=== PATIENT | female | born 1995 | race American Indian/Alaskan Native ===

== ENCOUNTER 2017-03-02 19:50 | Emergency (ER) | payer OTHER ==
[2017-03-02 20:12] VITALS: BP 131/85
--- NOTE | 2017-03-02 23:07 | Emergency Department Report ---
- General Chief Complaint: Wound/Laceration Stated Complaint: LACERATION RT HAND/ THUMB Time Seen by Provider: 03/02/17 23:02 Source: patient Mode of arrival: Ambulatory Limitations: No Limitations - History of Present Illness -: This evening Location: other (right thumb distal) Extremity Location: Right: Hand (right distal thumb) Place: home Patient Tetanus UTD: Yes (November 2016) Context: accidental, sharp object use (potatoe cutter) Associated Symptoms: pain. denies: loss of feeling/numbness, suspect foreign body present, weakness followed by dizziness, nausea/vomiting, fever Treatments Prior to Arrival: bandage - Related Data Previous Rx's Medication Instructions Recorded Last Taken Type Amoxicillin [Trimox CAP] 500 mg PO Q8H #30 capsule 12/02/14 Unknown Rx HYDROcodone/APAP 10-325 [[place] 1 each PO Q6HR PRN #20 tablet 12/02/14 Unknown Rx 10-325 mg TAB] predniSONE [Deltasone] 20 mg PO TID #9 tab 12/02/14 Unknown Rx Cephalexin [Keflex] 500 mg PO Q12HR #14 cap 03/02/17 Unknown Rx Allergies Allergy/AdvReac Type Severity Reaction Status Date / Time No Known Allergies Allergy Unverified 12/01/14 23:27 ED Review of Systems ROS: Stated complaint: LACERATION RT HAND/ THUMB Other details as noted in HPI Constitutional: denies: chills, fever Eyes: denies: eye pain, eye discharge, vision change ENT: denies: ear pain, throat pain Respiratory: denies: cough, shortness of breath, wheezing Cardiovascular: denies: chest pain, palpitations Endocrine: no symptoms reported Gastrointestinal: denies: abdominal pain, nausea, diarrhea Genitourinary: denies: urgency, dysuria, discharge Musculoskeletal: denies: back pain, joint swelling, arthralgia Skin: denies: rash, lesions Neurological: denies: headache, weakness, paresthesias Psychiatric: denies: anxiety, depression Hematological/Lymphatic: denies: easy bleeding, easy bruising ED Past Medical Hx - Past Medical History Previous Medical History?: No - Surgical History Past Surgical History?: No - Social History Smoking Status: Current Every Day Smoker Substance Use Type: Alcohol - Medications Home Medications: Home Medications Medication Instructions Recorded Confirmed Last Taken Type Amoxicillin [Trimox CAP] 500 mg PO Q8H #30 capsule 12/02/14 Unknown Rx HYDROcodone/APAP 10-325 [[place] 1 each PO Q6HR PRN #20 tablet 12/02/14 Unknown Rx 10-325 mg TAB] predniSONE [Deltasone] 20 mg PO TID #9 tab 12/02/14 Unknown Rx Cephalexin [Keflex] 500 mg PO Q12HR #14 cap 03/02/17 Unknown Rx ED Physical Exam - General Limitations: No Limitations General appearance: alert, in no apparent distress - Head Head exam: Present: atraumatic, normocephalic - Eye Eye exam: Present: normal appearance - ENT ENT exam: Present: normal exam, mucous membranes moist, TM's normal bilaterally - Neck Neck exam: Present: normal inspection - Respiratory Respiratory exam: Present: normal lung sounds bilaterally. Absent: respiratory distress - Cardiovascular Cardiovascular Exam: Present: regular rate, normal rhythm. Absent: systolic murmur, diastolic murmur, rubs, gallop - GI/Abdominal GI/Abdominal exam: Present: normal bowel sounds - Extremities Exam Extremities exam: Present: normal inspection - Expanded Upper Extremity Exam Right General: Present: abrasion, nail injury (#) (right first digit), avulsion Shoulder Exam: Present: normal inspection, full ROM Upper Arm exam: Present: normal inspection, full ROM Hand Wrist exam: Present: full ROM, tenderness, nail avulsion, other (normal sensation intact in right hand and digits) Neuro motor exam: Present: wrist extension intact, thumb opposition intact, thumb adduction intact Vascular: Present: normal capillary refill, radial pulse - Back Exam Back exam: Present: normal inspection, full ROM - Neurological Exam Neurological exam: Present: alert, oriented X3, normal gait - Psychiatric Psychiatric exam: Present: normal affect, normal mood - Skin Skin exam: Present: warm, dry, normal color. Absent: rash ED Course Vital Signs 03/02/17 20:06 Temperature 98.5 F Pulse Rate 75 Respiratory 20 Rate Blood Pressure 131/85 O2 Sat by Pulse 100 Oximetry ED Medical Decision Making - Medical Decision Making 21 year old female presents to ED with right thumb laceration after using potato cutter this evening. Patient will not need procedure/suturing done due to avulsion injury to right thumb. patient has approximately 1cm of skin missing from distal portion of right thumb including nail distal nail bed. bleeding is well controlled. I have applied Surgiseal (regenerating cellulose) and sterile gauze and patient will be given RX for PO antibiotics. patient is to return to ED or urgent care or PCP in 48 hours for recheck of wound. Critical care attestation.: If time is entered above; I have spent that time in minutes in the direct care of this critically ill patient, excluding procedure time. ED Disposition Clinical Impression: Thumb laceration Qualifiers: Encounter type: initial encounter Laterality: right Qualified Code(s): S61.011A - Laceration without foreign body of right thumb without damage to nail , initial encounter Disposition: DISCHARGED TO HOME OR SELFCARE Is pt being admited?: No Does the pt Need Aspirin: No Condition: Stable Instructions: Laceration (ED) Additional Instructions: Please follow up for wound recheck with urgent care or PCP or ED in 48 hours. Prescriptions: Cephalexin [Keflex] 500 mg PO Q12HR #14 cap Referrals: PRIMARY CARE [Primary Care Provider] - 03/04/17 Forms: Work/School Release Form(ED)
== END 2017-03-02 23:29 | disposition home or self-care (01) ==
LOC: ED 19:50
DX: S61.011A Laceration without foreign body of right thumb without damage to nail, initial encounter (principal); F17.200 Nicotine dependence, unspecified, uncomplicated; W45.8XXA Other foreign body or object entering through skin, initial encounter; Y93.9 Activity, unspecified; Y92.9 Unspecified place or not applicable; Y99.9 Unspecified external cause status
CPT/HCPCS: 99282

== ENCOUNTER 2017-10-05 20:49 | Outpatient (CLI) | payer OTHER, MEDICAID ==
[2017-10-05 21:06] VITALS: BP 141/87
== END 2017-10-05 21:56 | disposition home or self-care (01) ==
LOC: TRG 20:49
PROVIDERS: ATTEND Obstetrics & Gynecology
DX: O46.93 Antepartum hemorrhage, unspecified, third trimester (principal); O36.8130 Decreased fetal movements, third trimester, not applicable or unspecified; Z3A.34 34 weeks gestation of pregnancy
CPT/HCPCS: 59025

== ENCOUNTER 2017-10-08 12:21 | Outpatient (CLI) | payer MEDICAID, OTHER ==
[2017-10-08] MEDS ORDERED: LACTATED RINGERS 500 ML IV ONE (12:24)
[2017-10-08 13:29] LABS: Bacteria,Urine 2+ /HPF (Negative); Bilirubin,Urine NEG (Negative); Blood,Urine SM (Negative); Ketones,Urine NEG (Negative); Leukocyte Esterase,Urine SM (Negative); Mucus,Urine FEW /HPF; Nitrite,Urine NEG (Negative); Protein,Urine <15 mg/dL mg/dL (Negative); Urobilinogen,Urine < 2.0 mg/dL (<2.0)
[2017-10-08 13:31] LABS: Hematocrit 32.5 % (30.3-42.9); Hemoglobin 10.6 gm/dl (10.1-14.3); Mean Corpuscular HGB Conc 33 % (30-34); Mean Corpuscular Hemoglobin 27 pg (28-32); Mean Corpuscular Volume 83 fl (79-97); Platelet Count 352 K/mm3 (140-440); Red Cell Distribution Width 15.7 % (13.2-15.2); White Blood Count 13.5 K/mm3 (4.5-11.0)
[2017-10-08 13:47] LABS: Alanine Aminotransferase 8 units/L (7-56); Lactate Dehydrogenase 144 units/L (91-180); Uric Acid 4.4 mg/dL (3.5-7.6)
[2017-10-08 14:00] VITALS: BP 137/73
== END 2017-10-08 14:17 | disposition home or self-care (01) ==
LOC: TRG 12:21
PROVIDERS: ATTEND Obstetrics & Gynecology
DX: O47.03 False labor before 37 completed weeks of gestation, third trimester (principal); Z3A.35 35 weeks gestation of pregnancy
CPT/HCPCS: 36415; 59025; 81001; 82565; 83615; 84450; 84460; 84550; 85027

== ENCOUNTER 2017-10-14 15:28 | Outpatient (CLI) | payer MEDICAID, OTHER ==
[2017-10-14] MEDS ORDERED: LACTATED RINGERS 500 ML IV ONE (16:37)
[2017-10-19 04:28] VITALS: BP 161/66
== END 2017-10-14 16:50 | disposition home or self-care (01) ==
LOC: TRG 15:28
PROVIDERS: ATTEND Obstetrics & Gynecology
DX: O47.03 False labor before 37 completed weeks of gestation, third trimester (principal); Z3A.36 36 weeks gestation of pregnancy
CPT/HCPCS: 59025

== ENCOUNTER 2017-10-18 11:11 | Inpatient (IN) | payer MEDICAID, OTHER ==
[2017-10-18 12:15] LABS: Hematocrit 31.7 % (30.3-42.9); Hemoglobin 10.2 gm/dl (10.1-14.3); Mean Corpuscular HGB Conc 32 % (30-34); Mean Corpuscular Hemoglobin 26 pg (28-32); Mean Corpuscular Volume 82 fl (79-97); Platelet Count 399 K/mm3 (140-440); Red Blood Count 3.87 M/mm3 (3.65-5.03); Red Cell Distribution Width 15.8 % (13.2-15.2)
[2017-10-18 12:18] LABS: Bilirubin,Urine Negative (Negative); Blood,Urine Negative (Negative); Ketones,Urine Negative (Negative); Leukocyte Esterase,Urine Negative (Negative); Nitrite,Urine Negative (Negative); Urobilinogen,Urine < 2.0 mg/dL (<2.0)
[2017-10-18 12:25] LABS: Bacteria,Urine 1+ /HPF (Negative)
[2017-10-18 12:32] LABS: Alanine Aminotransferase 8 units/L (7-56); Blood Urea Nitrogen 8 mg/dL (7-17); Lactate Dehydrogenase 195 units/L (91-180); Uric Acid 6.2 mg/dL (3.5-7.6)
[2017-10-18] MEDS ORDERED: SENOKOT S PO PRN (13:59)
[2017-10-18] MEDS ORDERED: MYLICON PO PRN (13:59)
[2017-10-18] MEDS ORDERED: ALUM-MAG HYDROX-SIMETH 200-200-20MG/5ML PO PRN (13:59)
[2017-10-18] MEDS ORDERED: ZOFRAN IV PRN (13:59)
[2017-10-18] MEDS ORDERED: MILK OF MAGNESIA PO PRN (13:59)
[2017-10-18] MEDS ORDERED: COLACE PO PRN (13:59)
[2017-10-18] MEDS ORDERED: AMBIEN PO PRN (13:59)
[2017-10-18] MEDS ORDERED: TYLENOL PO PRN (13:59)
[2017-10-18] MEDS ORDERED: DEEP SEA NS PRN (13:59)
[2017-10-18] MEDS ORDERED: TUCKS PAD TP PRN (13:59)
--- NOTE | 2017-10-18 14:10 | Event Note ---
Date: 10/18/17 Arrived to office for routine visit. c/o headache for 3 days, not reported to office. Denies blurred vision or epigastric pain. BP in office for 140/80-90. Seen by [facility] for morbid obesity. consult-Mila Green, Plan 24hr urine and [facility] consult.
--- NOTE | 2017-10-18 16:46 | Ultrasound Report ---
FINAL REPORT EXAM: US OB BPP WO NON-STRESS HISTORY: elevated BP TECHNIQUE: Biophysical profile PRIORS: Biophysical profile September 05, 2017. FINDINGS: heart rate: 142 BPM Breathin Gross Body Movements: 2 Tone: 2 Qualitative AFV: 2 IMPRESSION: Biophysical profile score 6/8. Anthony level II finding report initiated.
--- NOTE | 2017-10-18 17:45 | Event Note ---
Date: 10/18/17 Dr. Montoya consulted with [facility], recommendation to delivery BPP 04/07 BP: 134/6/8, 132/70, 140/76, 140/73, 128/57 Labs as noted.
[2017-10-18] MEDS: LACTATED RINGERS 1,000 ML IV SCH (17:55)
--- NOTE | 2017-10-18 19:04 | History and Physical Report ---
History of Present Illness Date of examination: 10/18/17 Date of admission: 10/18/17 16:24 History of present illness: 22 yo LMP EDC 11/10/17 @ 36.5 weeks gestation, presented to office for routine OB visit with elevated BP's of 150/90 and c/o unresolved headache for 3 days. Denies blurred vision or epigastric pain. Transfer into care at 16 weeks from [facility]. care complicated by obesity with [facility] comang't EIF per [facility] with resolution. She is GBS negative. 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 Family/Genetic History: diabetes, hypertension, stroke Social history: no significant social history, single - Obstetrical History Expected Date of Delivery: 11/10/17 Actual Gestation: 36 Week(s) 5 Day(s) : 1 Medications and Allergies Allergies Allergy/AdvReac Type Severity Reaction Status Date / Time No Known Allergies Allergy Unverified 12/01/14 23:27 Home Medications Medication Instructions Recorded Confirmed Last Taken Type Vitamin 1 tab PO DAILY 10/05/17 10/05/17 10/05/17 History Active Meds: Active Medications Acetaminophen (Tylenol) 650 mg PO Q4H PRN PRN Reason: Pain MILD(1-3)/Fever >100.5/DAVILA Al Hydrox/Mg Hydrox/Simethicone (Alum-Mag Hydrox-Simeth [phone]/5ml) 30 ml PO Q6H PRN PRN Reason: Indigestion Docusate Sodium (Colace) 100 mg PO Q12H PRN PRN Reason: Constipation Lactated Ringer's (Lactated Ringers) 1,000 mls @ 75 mls/hr IV DIRECT ELENA Last Admin: 10/18/17 17:55 Dose: 75 mls/hr Magnesium Hydroxide (Milk Of Magnesia) 30 ml PO QHS PRN PRN Reason: Laxative Effect Multivitamins/Iron/Calcium ( Vitamin) 1 each PO QDAY ELENA Ondansetron HCl (Zofran) 4 mg IV Q6H PRN PRN Reason: Nausea And Vomiting Senna/Docusate Sodium (Senokot S) 2 tab PO Q12H PRN PRN Reason: Laxative Effect Simethicone (Mylicon) 80 mg PO Q6H PRN PRN Reason: Gas pain Sodium Chloride (Deep Sea) 2 spray NS Q4H PRN PRN Reason: Congestion Witch Raquel/Glycerin (Tucks Pad) 1 each TP PRN PRN PRN Reason: Hemorrhoids Zolpidem Tartrate (Ambien) 10 mg PO ONCE PRN PRN Reason: Sleep Review of Systems Constitutional: no anorexia, no malaise, no chronic headaches, no poor appetite Eyes: deferred Ears, nose, mouth and throat: deferred Cardiovascular: high blood pressure, leg edema, no chest pain, no palpitations, no syncope Gastrointestinal: no abdominal pain, no nausea, no vomiting, no heartburn Genitourinary: normal appearance, no vaginal bleeding, no leakage of fluid, no genital sores, no contractions Rectal Exam: deferred Integumentary: deferred Neurological: headaches, no seizures, no syncope, no double vision, no loss of vision - Vital Signs Vital signs: Vital Signs Pulse Pulse Ox 86 97 10/18/17 11:40 10/18/17 11:40 Temp Pulse Resp BP Pulse Ox 97.7 F 94 H 20 135/75 96 10/18/17 17:42 10/18/17 19:01 10/18/17 17:42 10/18/17 18:55 10/18/17 19:01 - Physical Exam Anus/Rectum: Positive: normal perianal skin - Obstetrical FHR: category 1 Uterine Contraction Monitor Mode: External Uterine Contraction Pattern: Irregular Uterine Tone Measurement Phase: Resting Uterine Contraction Intensity: Mild Results Result Diagrams: 10/18/17 11:52 10/18/17 11:52 Abnormal lab results 10/18/17 10/18/17 10/18/17 Range/Units 11:51 11:52 11:52 WBC 12.0 H (4.5-11.0) K/mm3 MCH 26 L (28-32) pg RDW 15.8 H (13.2-15.2) % Creatinine 0.4 L (0.7-1.2) mg/dL Lactate Dehydrogenase 195 H (91-180) units/L Ur Specific [place] 1.035 H (1.003-1.030) U Epithel Cells (Auto) 20.0 H (0-13.0) /HPF All other labs normal. Assessment and Plan A: IUP at 36.5 weeks gestation Preeclampsia GBS negative P: MD consult Induction of labor Magnesium Sulfate Seizure precautions
[2017-10-18] MEDS ORDERED: BRETHINE IVP PRN (19:15)
[2017-10-18] MEDS ORDERED: SUBLIMAZE IV PRN (19:15)
[2017-10-18] MEDS ORDERED: BRETHINE SUB-Q PRN (19:15)
[2017-10-18] MEDS ORDERED: STADOL IV PRN (19:15)
[2017-10-18] MEDS ORDERED: MINERAL OIL PO PRN (19:15)
[2017-10-18] MEDS ORDERED: PHENERGAN PO PRN (19:15)
[2017-10-18] MEDS ORDERED: ePHEDrine SULFATE IV PRN (19:26)
[2017-10-18] MEDS ORDERED: LACTATED RINGERS 1,000 ML IV SCH (20:00)
[2017-10-18] MEDS ORDERED: PITOCin/NS 30 UNIT/500ML 30 UNITS/500 ML BAG IV SCH (20:00)
[2017-10-18] MEDS ORDERED: XYLOCAINE 2% INFILTRATI ONE (20:00)
[2017-10-18] MEDS ORDERED: PITOCin/NS 20 UNIT/1000ML DRIP 20 UNITS/1,000 ML BAG IV SCH (20:00)
[2017-10-18] MEDS ORDERED: MAGNESIUM SULFATE 4GM/100ML 4 GM/100 ML BAG IV ONE (20:00)
[2017-10-18] MEDS: MAGNESIUM SULFATE 40GM/1000ML 40 GM/1,000 ML BAG IV SCH (20:27)
[2017-10-18] MEDS ORDERED: CERVIDIL VG ONE (20:30)
[2017-10-19] MEDS: LACTATED RINGERS 1,000 ML IV SCH (05:17)
--- NOTE | 2017-10-19 08:37 | Progress Note ---
Assessment and Plan BP: 130-140/70-80 Magnesium Sulfate Continues at 2gm/hr Carias present and patent Cervidil removed by RN at 0815 A: IUP at 36.6 weeks gestation S/P Cervidil induction night 1 Preeclampsia Headache Unfavorable cervix Category 1 tracing P: MD consult Cytotec Subjective - Subjective Date of service: 10/19/17 Interval history: 22 yo LMP EDC 11/10/17 @ 36.5 weeks gestation, presented to office for routine OB visit with elevated BP's of 150/90 and c/o unresolved headache for 3 days. Denies blurred vision or epigastric pain. Transfer into care at 16 weeks from [facility]. care complicated by obesity with [facility] comang't EIF per [facility] with resolution. She is GBS negative. Patient reports: movement normal, contractions (mild discomfort), other ( Headache, not resolved with Tylenol @ 0600. Denies blurred vision or epigastric pain), no new complaints, no loss of fluid, no vaginal bleeding Objective - Vital Signs Vital Signs: Vital Signs - 12hr 10/18/17 10/18/17 10/18/17 20:36 20:41 20:46 Temperature Pulse Rate 94 H 101 H 90 Respiratory Rate Blood Pressure Blood Pressure [Right] O2 Sat by Pulse 96 96 96 Oximetry 10/18/17 10/18/17 10/18/17 20:47 20:51 20:56 Temperature Pulse Rate 114 H 102 H 94 H Respiratory Rate Blood Pressure Blood Pressure [Right] O2 Sat by Pulse 94 96 94 Oximetry 10/18/17 10/18/17 10/18/17 21:00 21:01 21:06 Temperature Pulse Rate 102 H 105 H 95 H Respiratory Rate Blood Pressure Blood Pressure [Right] O2 Sat by Pulse 93 96 96 Oximetry 10/18/17 10/18/17 10/18/17 21:11 21:16 21:21 Temperature Pulse Rate 101 H 87 91 H Respiratory Rate Blood Pressure Blood Pressure [Right] O2 Sat by Pulse 96 96 97 Oximetry 10/18/17 10/18/17 10/18/17 21:26 21:28 21:31 Temperature Pulse Rate 92 H 84 95 H Respiratory Rate Blood Pressure 132/67 Blood Pressure [Right] O2 Sat by Pulse 97 95 Oximetry 10/18/17 10/18/17 10/18/17 21:36 21:41 21:46 Temperature Pulse Rate 98 H 84 85 Respiratory Rate Blood Pressure Blood Pressure [Right] O2 Sat by Pulse 97 96 97 Oximetry 10/18/17 10/18/17 10/18/17 21:51 21:56 22:01 Temperature Pulse Rate 88 91 H 97 H Respiratory Rate Blood Pressure Blood Pressure [Right] O2 Sat by Pulse 97 97 96 Oximetry 10/18/17 10/18/17 10/18/17 22:06 22:11 22:16 Temperature Pulse Rate 94 H 94 H 93 H Respiratory Rate Blood Pressure Blood Pressure [Right] O2 Sat by Pulse 97 97 97 Oximetry 10/18/17 10/18/17 10/18/17 22:21 22:26 22:28 Temperature Pulse Rate 87 98 H 103 H Respiratory Rate Blood Pressure 136/72 Blood Pressure [Right] O2 Sat by Pulse 97 96 Oximetry 10/18/17 10/18/17 10/18/17 22:31 22:36 22:41 Temperature Pulse Rate 93 H 94 H 100 H Respiratory Rate Blood Pressure Blood Pressure [Right] O2 Sat by Pulse 97 97 97 Oximetry 10/18/17 10/18/17 10/18/17 22:46 22:51 22:56 Temperature Pulse Rate 98 H 93 H 95 H Respiratory Rate Blood Pressure Blood Pressure [Right] O2 Sat by Pulse 97 96 96 Oximetry 10/18/17 10/18/17 10/18/17 23:01 23:06 23:11 Temperature Pulse Rate 97 H 95 H 93 H Respiratory Rate Blood Pressure Blood Pressure [Right] O2 Sat by Pulse 95 97 96 Oximetry 10/18/17 10/18/17 10/18/17 23:16 23:21 23:26 Temperature Pulse Rate 88 93 H 90 Respiratory Rate Blood Pressure Blood Pressure [Right] O2 Sat by Pulse 96 96 96 Oximetry 10/18/17 10/18/17 10/18/17 23:28 23:31 23:36 Temperature Pulse Rate 97 H 86 102 H Respiratory Rate Blood Pressure 132/63 Blood Pressure [Right] O2 Sat by Pulse 96 95 Oximetry 10/18/17 10/18/17 10/18/17 23:41 23:43 23:46 Temperature Pulse Rate 104 H 98 H 106 H Respiratory Rate Blood Pressure Blood Pressure [Right] O2 Sat by Pulse 96 94 96 Oximetry 10/18/17 10/18/17 10/18/17 23:51 23:56 23:59 Temperature Pulse Rate 94 H 94 H 86 Respiratory Rate Blood Pressure Blood Pressure [Right] O2 Sat by Pulse 95 96 94 Oximetry 10/19/17 10/19/17 10/19/17 00:01 00:06 00:09 Temperature Pulse Rate 102 H 84 86 Respiratory Rate Blood Pressure Blood Pressure [Right] O2 Sat by Pulse 93 94 94 Oximetry 10/19/17 10/19/17 10/19/17 00:11 00:16 00:21 Temperature Pulse Rate 97 H 103 H 83 Respiratory Rate Blood Pressure Blood Pressure [Right] O2 Sat by Pulse 94 96 97 Oximetry 10/19/17 10/19/17 10/19/17 05:18 05:23 05:28 Temperature Pulse Rate 101 H 110 H 109 H Respiratory Rate Blood Pressure 137/61 Blood Pressure [Right] O2 Sat by Pulse 94 94 94 Oximetry 10/19/17 10/19/17 10/19/17 05:33 05:35 05:38 Temperature Pulse Rate 105 H 102 H 109 H Respiratory Rate Blood Pressure Blood Pressure [Right] O2 Sat by Pulse 96 94 97 Oximetry 10/19/17 10/19/17 10/19/17 05:43 05:44 05:49 Temperature Pulse Rate 97 H 107 H 54 L Respiratory Rate Blood Pressure Blood Pressure [Right] O2 Sat by Pulse 96 94 83 L Oximetry 10/19/17 10/19/17 10/19/17 05:54 05:59 06:00 Temperature Pulse Rate 101 H 110 H 98 H Respiratory Rate Blood Pressure Blood Pressure [Right] O2 Sat by Pulse 94 92 94 Oximetry 10/19/17 10/19/17 10/19/17 06:04 06:09 06:13 Temperature Pulse Rate 97 H 90 116 H Respiratory Rate Blood Pressure Blood Pressure [Right] O2 Sat by Pulse 95 94 94 Oximetry 10/19/17 10/19/17 10/19/17 06:14 06:19 06:24 Temperature Pulse Rate 111 H 113 H 99 H Respiratory Rate Blood Pressure Blood Pressure [Right] O2 Sat by Pulse 96 97 95 Oximetry 10/19/17 10/19/17 10/19/17 06:28 06:29 06:34 Temperature Pulse Rate 92 H 96 H 95 H Respiratory Rate Blood Pressure 137/71 Blood Pressure [Right] O2 Sat by Pulse 95 94 Oximetry 10/19/17 10/19/17 10/19/17 06:39 06:42 06:44 Temperature Pulse Rate 105 H 97 H 98 H Respiratory Rate Blood Pressure Blood Pressure [Right] O2 Sat by Pulse 96 94 96 Oximetry 10/19/17 10/19/17 10/19/17 06:49 06:53 06:54 Temperature Pulse Rate 93 H 93 H 93 H Respiratory Rate Blood Pressure Blood Pressure [Right] O2 Sat by Pulse 94 94 94 Oximetry 10/19/17 10/19/17 10/19/17 06:59 07:02 07:04 Temperature Pulse Rate 93 H 92 H 99 H Respiratory Rate Blood Pressure Blood Pressure [Right] O2 Sat by Pulse 94 92 92 Oximetry 10/19/17 10/19/17 10/19/17 07:09 07:14 07:15 Temperature 98.6 F Pulse Rate 95 H 95 H 115 H Respiratory 18 Rate Blood Pressure Blood Pressure 135/72 [Right] O2 Sat by Pulse 93 92 Oximetry 10/19/17 10/19/17 10/19/17 07:18 07:19 07:24 Temperature Pulse Rate 97 H 101 H 86 Respiratory Rate Blood Pressure Blood Pressure [Right] O2 Sat by Pulse 94 94 92 Oximetry 10/19/17 10/19/17 10/19/17 07:28 07:29 07:34 Temperature Pulse Rate 100 H 97 H 95 H Respiratory Rate Blood Pressure 128/60 Blood Pressure [Right] O2 Sat by Pulse 92 91 Oximetry 10/19/17 10/19/17 10/19/17 07:36 07:39 07:42 Temperature Pulse Rate 104 H 120 H 102 H Respiratory Rate Blood Pressure Blood Pressure [Right] O2 Sat by Pulse 94 95 94 Oximetry 10/19/17 10/19/17 10/19/17 07:44 07:49 07:54 Temperature Pulse Rate 116 H 98 H 100 H Respiratory Rate Blood Pressure Blood Pressure [Right] O2 Sat by Pulse 95 91 91 Oximetry 10/19/17 10/19/17 10/19/17 07:58 07:59 08:06 Temperature Pulse Rate 110 H 113 H 115 H Respiratory Rate Blood Pressure 135/72 Blood Pressure [Right] O2 Sat by Pulse 94 96 Oximetry 10/19/17 10/19/17 10/19/17 08:21 08:24 08:26 Temperature Pulse Rate 102 H 111 H 115 H Respiratory Rate Blood Pressure Blood Pressure [Right] O2 Sat by Pulse 96 94 95 Oximetry 10/19/17 10/19/17 10/19/17 08:28 08:31 08:36 Temperature Pulse Rate 105 H 113 H 102 H Respiratory Rate Blood Pressure 140/72 Blood Pressure [Right] O2 Sat by Pulse 96 95 Oximetry - Exam Breasts: deferred Abdomen: Present: normal appearance, soft FHR: category 1 Uterine Contraction Monitor Mode: External Cervical Dilatation: 0 Cervical Effacement Percentage: 0 Uterine Contraction Pattern: Irregular Uterine Tone Measurement Phase: Resting Uterine Contraction Intensity: Mild Extremities: edema - Labs Labs: Abnormal Labs 10/18/17 10/18/17 10/18/17 11:51 11:52 11:52 WBC 12.0 H MCH 26 L RDW 15.8 H Creatinine 0.4 L Magnesium Lactate Dehydrogenase 195 H Ur Specific [place] 1.035 H U Epithel Cells (Auto) 20.0 H 10/19/17 00:59 WBC MCH RDW Creatinine Magnesium 27.60 H Lactate Dehydrogenase Ur Specific [place] U Epithel Cells (Auto) Laboratory Results - last 24 hr 10/18/17 10/18/17 10/18/17 11:51 11:52 11:52 WBC 12.0 H RBC 3.87 Hgb 10.2 Hct 31.7 MCV 82 MCH 26 L MCHC 32 RDW 15.8 H Plt Count 399 BUN 8 Creatinine 0.4 L Estimated GFR > 60 Uric Acid 6.2 Magnesium AST 11 ALT 8 Lactate Dehydrogenase 195 H Urine Color Yellow Urine Turbidity Clear Urine pH 5.0 Ur Specific [place] 1.035 H Urine Protein 100 mg/dl Urine Glucose (UA) Negative Urine Ketones Negative Urine Blood Negative Urine Nitrite Negative Urine Bilirubin Negative Urine Urobilinogen < 2.0 Ur Leukocyte Esterase Negative Urine WBC (Auto) 3.0 Urine RBC (Auto) 0.0 U Epithel Cells (Auto) 20.0 H Urine Bacteria (Auto) 1+ Blood Type Antibody Screen 10/18/17 10/19/17 17:10 00:59 WBC RBC Hgb Hct MCV MCH MCHC RDW Plt Count BUN Creatinine Estimated GFR Uric Acid Magnesium 27.60 H AST ALT Lactate Dehydrogenase Urine Color Urine Turbidity Urine pH Ur Specific [place] Urine Protein Urine Glucose (UA) Urine Ketones Urine Blood Urine Nitrite Urine Bilirubin Urine Urobilinogen Ur Leukocyte Esterase Urine WBC (Auto) Urine RBC (Auto) U Epithel Cells (Auto) Urine Bacteria (Auto) Blood Type O POSITIVE Antibody Screen Negative
[2017-10-19] MEDS ORDERED: CYTOTEC VG ONE ×2 (09:00→13:00)
[2017-10-19] MEDS: FIORICET PO PRN ×2 (09:45→15:40)
[2017-10-19] MEDS ORDERED: PRENATAL VITAMIN PO SCH (10:00)
[2017-10-19] MEDS ORDERED: REGLAN IV NR (15:24)
[2017-10-19] MEDS ORDERED: BICITRA PO ONE (15:24)
[2017-10-19] MEDS ORDERED: PEPCID IV NR (15:24)
--- NOTE | 2017-10-19 15:30 | Event Note ---
Date: 10/19/17 Pt c/o severe headache minimally responsive to Fioricet. Category I tracing. Cervix /3. Decision made to proceed with section. OR unavailable at this time. Will proceed with delivery.
[2017-10-19] MEDS ORDERED: LACTATED RINGERS 1,000 ML IV SCH (16:00)
[2017-10-19] MEDS ORDERED: ANCEF/STERILE WATER 2 GM/20 ML 2 GM/20 ML SYRINGE IV NR (16:00)
[2017-10-19] MEDS ORDERED: PITOCin/NS 20 UNIT/1000ML DRIP 20 UNITS/1,000 ML BAG IV SCH ×2 (16:00→23:57)
[2017-10-19] MEDS ORDERED: BICITRA ONE (18:12)
[2017-10-19] MEDS ORDERED: NARCAN 0.4 MG/1 ML IV PRN ×2 (19:13→23:57)
[2017-10-19] MEDS ORDERED: BENADRYL IV PRN (19:13)
--- NOTE | 2017-10-19 19:13 | Anesthesia Day of Surgery ---
Anesthesia Day of Surgery - Day of Surgery Patient Examined: Yes Patient H&P Reviewed: Yes Patient is NPO: Yes
--- NOTE | 2017-10-19 19:13 | Anesthesia Consultation ---
Anesthesia Consult and Med Hx Date of service: 10/19/17 - Airway Anesthetic Teeth Evaluation: Good ROM Head & Neck: Adequate Mental/Hyoid Distance: Adequate Mallampati Class: Class II Intubation Access Assessment: Probably Good - Pulmonary Exam CTA: Yes - Cardiac Exam Cardiac Exam: RRR - Pre-Operative Health Status ASA Pre-Surgery Classification: ASA3 Proposed Anesthetic Plan: Epidural, Spinal - Pulmonary Hx Asthma: No COPD: No Hx Pneumonia: No - Cardiovascular System Hx Hypertension: Yes (pre-eclampsia) - Central Nervous System Hx Seizures: No Hx Psychiatric Problems: No - Endocrine Hx Renal Disease: No Hx End Stage Renal Disease: No Hx Hypothyroidism: No Hx Hyperthyroidism: No - Hematic Hx Anemia: No Hx Sickle Cell Disease: No - Other Systems Hx Alcohol Use: No Hx Obesity: Yes (morbid obesity, bmi > 40)
[2017-10-19] MEDS ORDERED: TORADOL IV PRN (19:14)
[2017-10-19] MEDS ORDERED: MORPHINE IV PRN ×4 (19:14→23:57)
[2017-10-19] MEDS ORDERED: SODIUM CHLORIDE FLUSH SYRINGE 10 ML IV NR (20:00)
[2017-10-19] MEDS ORDERED: WATER FOR IRRIG STERILE IR ONE (20:07)
[2017-10-19] MEDS ORDERED: MORPHINE ONE (20:07)
[2017-10-19] MEDS ORDERED: NACL 0.9% IR ONE (20:07)
[2017-10-19] MEDS ORDERED: ANCEF/STERILE WATER 2 GM/20 ML IV ONE (20:15)
[2017-10-19 20:19] LABS: Total Protein 24 Hour,Urine 553.5 (2-200)
[2017-10-19] MEDS ORDERED: ZOFRAN ONE (20:29)
[2017-10-19] MEDS ORDERED: VERSED ONE ×2 (20:53→21:02)
[2017-10-19] MEDS ORDERED: NEO SYNEPHRINE/NS Syringe(OR USE) IV ONE (21:02)
[2017-10-19] MEDS ORDERED: SUBLIMAZE ONE (21:04)
[2017-10-19] MEDS ORDERED: DIPRIVAN 10 MG/ML IV ONE ×2 (21:07→21:39)
[2017-10-19] MEDS ORDERED: XYLOCAINE MPF 2% ONE ×2 (21:08→21:41)
--- NOTE | 2017-10-19 22:04 | Procedure Note ---
OB Delivery Note - Delivery Date of Delivery: 10/19/17 Surgeon: CASSIUS HERNANDEZ Estimated blood loss: other (900 mL) - Section Preop diagnosis: other (Worsening severe preeclampsia ) Postop diagnosis: same section procedure: section, primary low transverse Disposition: PACU Complications: none Narrative: Please see operative report. - A at 1 minute: 7 at 5 minutes: 8 Infant Gender: Female (2649g (5lb 13 oz) @ 2055 pm)
--- NOTE | 2017-10-19 22:10 | Operative Report ---
Operative Report Operative Report: Date of procedure: October 19, 2017 Preoperative diagnosis: 1) IUP at 36w6d 2) Severe Preeclampsia 3) Morbid Obesity BMI 45 Postoperative diagnosis: Same Procedure: Primary Low Transverse Section Surgeon: Eve Ochoa M.D. Anesthesia: Spinal- Epidural Findings: 1) Viable female , Apgars 7 and 8, weight 2649g, (5 lb 13 oz) in vertex presentation 2) Normal-appearing uterus ovaries and tubes Estimated blood loss: 900 mL IV fluids: 1300 mL Urine output: 200 mL, clear at the end of the procedure Drains: Carias to gravity Specimens: Placenta to pathology Complications: None. Counts correct x 2 Disposition: Stable to PACU Indication for procedure: Pt is a 22 year old primigravida at 36w6d with severe preeclampsia who was undergoing induction of labor then experienced worsening of headache remote from delivery. The decision was made to proceed with section. Operation in detail: After the risks, benefits, alternatives and complications were explained to the patient she gave informed consent for the procedure. She was subsequently taken to the operating room where spinal-epidural anesthesia was noted to be adequate. She was subsequently placed in the dorsal supine position with leftward tilt and prepped and draped in a normal sterile fashion. heart tones were noted to be in the 145s prior to incision. A timeout was performed. A Pfannenstiel skin incision was made with the knife and carried down to the layer of the fascia with the Bovie. The fascia was incised in the midline and the fascial incision was extended bilaterally with the Bovie. Attention was then turned to the superior aspect of the incision which was grasped with two Kochers, tented up, and dissected off the rectus muscles. Attention was then turned to the inferior aspect of the incision which was grasped with two Kochers , tented up and dissected off the rectus muscles. The rectus muscles were then in the midline and partially transected for adequate visualization. The peritoneum was then entered bluntly. The peritoneal incision was extended with good visualization of the bladder. The peritoneal incision was then stretched. An Bob self-retaining retractor was placed for visualization. The bladder blade was placed. The vesicouterine peritoneum was grasped with smooth pickups and incised with Metzenbaum scissors. Metzenbaum scissors were used to extend the incision bilaterally. The bladder flap was then created digitally and the bladder blade was replaced. A transverse incision was made in the lower uterine segment with a knife and extended bilaterally with the bandage scissors. The head was delivered without difficulty followed by shoulders and body. was bulb suctioned at delivery. The cord was clamped and cut and the was handed to NICU staff in attendance. Cord blood was collected. The placenta was then delivered manually. The uterus was then cleared of all clots and debris. The hysterotomy was then reapproximated with 0 Vicryl in a running locked fashion. A second layer of the same suture was used in imbricating fashion. An additional figure of eight of 2-0 Vicryl was used on the left side of the hysterotomy to obtain hemostasis. The hysterotomy was inspected and hemostasis was noted. The Bob self-retaining retractor was removed. The gutters were irrigated and cleared of all clots and debris. The hysterotomy was again inspected and noted to be hemostatic. Surgicel was placed over the hysterotomy. The peritoneum and rectus muscles were then reapproximated with 2-0 Vicryl in a running fashion. Additional figure of eights of 2-0 Vicryl were used to reapproximate the rectus msucles. The fascia was reapproximated with 0 Vicryl in a running fashion. The subcutaneous tissue was reapproximated with 3-0 Vicryl in a running fashion. The skin was reapproximated with 4-0 Vicryl in a subcuticular fashion. The incision was then covered with steri strips and a pressure dressing. The procedure was then ended. The patient tolerated the procedure well and was taken to the PACU in stable condition. All instrument, lap, and needle counts were correct 3.
[2017-10-19] MEDS: MAGNESIUM SULFATE 40GM/1000ML 40 GM/1,000 ML BAG IV SCH (22:46)
--- NOTE | 2017-10-19 22:46 | Post Anesthesia Evaluation ---
- Post Anesthesia Evaluation Patient Participated: Yes Airway Patent: Yes Stable Respiratory Function: Yes Nausea/Vomiting: No Temp > 96.8F: Yes Pain Manageable: Yes Adequeate Hydration: Yes Anesthesia Complications: No Patient on Ventilator: No
[2017-10-19] MEDS ORDERED: TYLENOL PO PRN (23:57)
[2017-10-19] MEDS ORDERED: D5LR 1,000 ML IV SCH (23:57)
[2017-10-19] MEDS ORDERED: SODIUM CHLORIDE FLUSH SYRINGE 10 ML IV PRN (23:57)
[2017-10-19] MEDS ORDERED: ZOFRAN IV PRN (23:57)
[2017-10-19] MEDS ORDERED: TUCKS PAD TP PRN (23:57)
[2017-10-19] MEDS ORDERED: ANCEF/NS 1 GM/50 ML 1 GM/50 ML BAG IV SCH (23:57)
[2017-10-19] MEDS ORDERED: LANSINOH TP PRN (23:57)
[2017-10-19] MEDS ORDERED: MYLICON PO PRN (23:57)
[2017-10-20] MEDS: TORADOL IV PRN ×3 (00:27→12:30)
[2017-10-20] MEDS: ceFAZolin 1 GM in NACL 0.9% 20 ML IV SCH ×2 (03:10→12:31)
[2017-10-20] MEDS: FEOSOL PO SCH ×2 (10:09→22:00)
[2017-10-20] MEDS: MILK OF MAGNESIA PO SCH ×2 (10:09→16:46)
[2017-10-20 10:45] LABS: Hematocrit 28.4 % (30.3-42.9); Hemoglobin 9.1 gm/dl (10.1-14.3)
[2017-10-20] MEDS: MAGNESIUM SULFATE 40GM/1000ML 40 GM/1,000 ML BAG IV SCH (16:49)
--- NOTE | 2017-10-20 17:46 | Progress Note ---
Assessment and Plan A: POD#1 s/p primary section at 36 wks Severe Preeclamspia on Mag Sulfate Morbid Obesity P: Continue Mag Sulfate for 24 hrs after delivery then begin routine postoperative advances Subjective - Subjective Date of service: 10/20/17 Principal diagnosis: Severe Preeclampsia at 36 wks, Morbid Obesity Interval history: No overnight events. Patient reports: pain well controlled, no voiding normally (martinez in place ), no flatus, no bowel movement, no ambulating normally (SCDs in place ) Amity: doing well Objective - Vital Signs Latest vital signs: Vital Signs Temp Pulse Resp BP BP Pulse Ox 10/20/17 12:30 18 10/20/17 11:54 99.0 F 87 18 121/77 97 10/20/17 11:29 98.2 F 82 18 116/61 10/20/17 09:55 18 124/59 10/20/17 07:59 98.3 F 92 H 18 111/66 96 10/20/17 06:00 98.2 F 89 18 122/73 10/20/17 02:35 98.9 F 91 H 18 117/68 10/20/17 00:35 98.2 F 86 18 132/77 10/19/17 23:15 97.8 F 75 23 140/74 98 10/19/17 23:11 77 18 140/68 96 10/19/17 23:05 77 24 123/68 93 10/19/17 23:00 74 18 125/75 99 10/19/17 22:55 75 23 132/73 93 10/19/17 22:50 76 23 122/80 97 10/19/17 22:45 72 24 125/63 94 10/19/17 22:40 76 24 128/78 98 10/19/17 22:35 73 19 126/75 97 10/19/17 22:30 72 19 114/67 95 10/19/17 22:25 79 22 129/79 93 10/19/17 22:21 82 24 118/76 97 10/19/17 22:17 86 16 96 10/19/17 22:15 97.8 F 10/19/17 20:20 . F L 10/19/17 19:52 83 98 10/19/17 19:47 89 96 10/19/17 19:42 88 97 10/19/17 19:37 90 97 10/19/17 19:32 86 97 10/19/17 19:30 89 139/69 94 10/19/17 19:27 92 H 95 10/19/17 19:23 89 94 10/19/17 19:22 85 96 10/19/17 19:17 88 97 10/19/17 19:12 83 97 10/19/17 19:07 85 97 10/19/17 19:02 84 96 10/19/17 18:58 82 92 10/19/17 18:57 92 H 98 10/19/17 18:52 86 98 10/19/17 18:48 88 126/60 10/19/17 18:45 97.8 F 97 H 18 126/60 10/19/17 18:44 97 H 97 10/19/17 18:39 95 H 97 10/19/17 18:34 95 H 97 10/19/17 18:29 85 123/58 97 10/19/17 18:24 86 97 10/19/17 18:19 84 98 10/19/17 18:14 86 96 10/19/17 18:09 85 96 10/19/17 18:03 90 96 10/19/17 17:58 100 H 96 10/19/17 17:55 73 91 10/19/17 17:53 96 H 96 10/19/17 17:48 80 94 Intake and Output 10/20/17 10/20/17 10/20/17 06:59 14:59 22:59 Intake Total 340 240 902.5 Output Total 525 800 Balance -185 -560 902.5 Intake: IV 100 902.5 MAGNESIUM SULFATE 40GM/ 902.5 1000ML 40 gm In 1,000 ml @ 2 GM/HR 50 mls/hr IV DIRECT [facility] Rx#:[id number] Oral 240 240 Output: Urine 525 800 Indwelling Catheter 400 800 Other: Total, Intake Amount 240 240 Total, Output Amount 400 800 - Exam Breasts: Present: deferred Cardiovascular: Present: Regular rate Lungs: Present: Clear to auscultation Abdomen: Present: soft (obese), abnormal bowel sounds (hypoactive ) Uterus: Present: fundal height at umbilicus Extremities: Present: edema Incision: Present: dressed - Labs Labs: Abnormal lab results 10/19/17 10/20/17 10/20/17 Range/Units 15:56 04:23 10:20 Hgb 9.1 L (10.1-14.3) gm/dl Hct 28.4 L (30.3-42.9) % Magnesium 4.30 H (1.7-2.3) mg/dL Urine Creatinine 148.8 H (0.1-20.0) mg/dL Ur Total Protein 24 Hr 553.50 H (2-200) Urine Total Protein 41 H (5-11.8) mg/dL 10/20/17 Range/Units 10:20 Hgb (10.1-14.3) gm/dl Hct (30.3-42.9) % Magnesium 4.30 H (1.7-2.3) mg/dL Urine Creatinine (0.1-20.0) mg/dL Ur Total Protein 24 Hr (2-200) Urine Total Protein (5-11.8) mg/dL
[2017-10-20] MEDS: MOTRIN PO PRN (18:04)
[2017-10-20] MEDS: PERCOCET 5/325 PO PRN (20:10)
[2017-10-20] MEDS ORDERED: M-M-R II VACCINE SUB-Q ONE (22:12)
[2017-10-21] MEDS: MOTRIN PO PRN ×2 (01:53→14:25)
[2017-10-21] MEDS: PERCOCET 5/325 PO PRN ×3 (01:53→14:24)
[2017-10-21] MEDS: MILK OF MAGNESIA PO SCH ×2 (02:01→06:52)
[2017-10-21] MEDS ORDERED: BOOSTRIX IM ONE (06:00)
[2017-10-21] MEDS ORDERED: CITRATE OF MAGNESIA PO ONE ×2 (06:50→10:41)
[2017-10-21] MEDS: FEOSOL PO SCH (09:46)
--- NOTE | 2017-10-21 10:44 | Progress Note ---
Assessment and Plan A: POD#2 s/p primary section at 36 wks Severe Preeclamspia s/p 24 hrs of magnesium sulfate for seizure prophylaxis Morbid Obesity P: Routine postoperative care. Discharge home with follow up in two weeks for incision check Subjective - Subjective Date of service: 10/21/17 Principal diagnosis: Severe Preeclampsia at 36 wks, Morbid Obesity Interval history: No overnight events. Pt would like to go home today. Patient reports: appetite normal, voiding normally, pain well controlled, flatus , ambulating normally, no dizzy ambulation, no bowel movement, no nauseated : doing well Objective - Vital Signs Latest vital signs: Vital Signs Temp Pulse Resp BP BP Pulse Ox 10/21/17 09:21 98.2 F 90 18 118/63 94 10/21/17 08:51 98.2 F 18 10/21/17 08:50 96 H 95 10/21/17 04:00 97.7 F 83 18 136/76 10/21/17 00:00 98.0 F 72 18 119/73 10/20/17 18:04 20 10/20/17 17:15 98.6 F 78 18 108/63 10/20/17 16:40 98.6 F 100 H 18 108/63 96 10/20/17 14:00 98.2 F 74 18 106/54 10/20/17 12:30 18 10/20/17 11:54 99.0 F 87 18 121/77 97 10/20/17 11:29 98.2 F 82 18 116/61 Intake and Output 10/20/17 10/21/17 10/21/17 22:59 06:59 14:59 Intake Total 1142.5 240 120 Output Total 1000 Balance 142.5 240 120 Intake: IV 902.5 MAGNESIUM SULFATE 40GM/ 902.5 1000ML 40 gm In 1,000 ml @ 2 GM/HR 50 mls/hr IV DIRECT [facility] Rx#:[id number] Oral 240 240 120 Output: Urine 1000 Indwelling Catheter 500 Void 500 Other: Total, Intake Amount 240 240 120 Total, Output Amount 500 # Voids Void 1 - Exam Breasts: Present: deferred Cardiovascular: Present: Regular rate Lungs: Present: Clear to auscultation Abdomen: Present: soft, normal bowel sounds. Absent: tenderness Uterus: Present: fundal height below umbilicus Extremities: Present: edema (trace) Incision: Present: intact - Labs Labs: Abnormal lab results 10/20/17 10/20/17 Range/Units 10:20 10:20 Hgb 9.1 L (10.1-14.3) gm/dl Hct 28.4 L (30.3-42.9) % Magnesium 4.30 H (1.7-2.3) mg/dL
--- NOTE | 2017-10-21 10:48 | Discharge Summary ---
Providers - Providers Date of Admission: 10/18/17 16:24 Date of discharge: 10/21/17 Attending physician: LEANA DAO MD 10/18/17 13:04 Consult to Physician [CONS] Routine Consulting Provider: LEANA DAO Reason For Exam: Suspected preeclampsia Place consult to:: [facility] Notified:: yes Comment:: Consult completed already per Peri 10/19/17 23:57 Consult to Civil Drafter [CONS] Routine Reason For Exam: Primary care physician: LEANA DAO MD Hospitalization Reason for admission: induction of labor Procedure: section, primary low transverse Procedure details: Please see operative note. Incision: intact Other procedures: none complications: none Discharge diagnosis: delivery [place] baby: female Hospital course: Pt was admitted and found to have severe preeclampsia. She underwent section which she tolerated well, and was given 24 hr of magnesium sulfate for seizure prophylaxis. She will be discharge on POD#2 and will follow up in 1 week for a blood pressure check. Condition at discharge: Stable Disposition: DC- TO HOME OR SELFCARE - Discharge Diagnoses (1) Morbid obesity with BMI of 45.0-49.9, adult Status: Acute (2) delivery Status: Acute (3) S/P section Status: Acute (4) Severe preeclampsia Status: Acute Qualifiers: Trimester: third trimester Qualified Code(s): O14.13 - Severe pre-eclampsia , third trimester Plan - Discharge Medications Prescriptions: Ibuprofen [Motrin] 800 mg PO Q8HR PRN #30 tablet PRN Reason: Pain oxyCODONE /ACETAMINOPHEN [Percocet 5/325] 1 tab PO Q6HR PRN #30 tablet PRN Reason: Pain - Provider Discharge Summary Activity: routine, no sex for 6 weeks, no heavy lifting 4 weeks, no strenuous exercise Diet: routine Instructions: routine Additional instructions: [] Smoking cessation referral if applicable(refer to patient education folder for contact #) [] Refer to [facility]'s [facility] Center Booklet Call your doctor immediately for: * Fever > 100.5 * Heavy vaginal bleeding ( >1 pad per hour) * Severe persistent headache * Shortness of breath * Reddened, hot, painful area to leg or breast * Drainage or odor from incision. * Keep incision clean and dry at all times and follow doctor's instructions regarding bathing/showering - Follow up plan Follow up: LÁZARO CHENG CNM [Advanced Practice Nurse] - 10/30/17 (please schedule appt for blood pressure check)
[2017-10-21] MEDS ORDERED: Fluarix Quad 2017-2018(36 MOS+ IM ONE (12:00)
[2017-10-21 18:46] VITALS: BP 133/88
== END 2017-10-21 17:50 | disposition home or self-care (01) | DRG 765 ==
LOC: TRG 11:11 → LD 16:24 → OB 10-20
PROVIDERS: ADMIT Obstetrics & Gynecology; ATTEND Obstetrics & Gynecology
PROC: 10D00Z1 Extraction of Products of Conception, Low, Open Approach (ICD-10-PCS; principal; 2017-10-19)
PROC: 3E0234Z Introduction of Serum, Toxoid and Vaccine into Muscle, Percutaneous Approach (ICD-10-PCS; 2017-10-21)
DX: O14.93 Unspecified pre-eclampsia, third trimester (principal); O60.14X0 Preterm labor third trimester with preterm delivery third trimester, not applicable or unspecified; Z68.42 Body mass index [BMI] 45.0-49.9, adult; Z3A.36 36 weeks gestation of pregnancy; E66.01 Morbid (severe) obesity due to excess calories; Z23 Encounter for immunization; O99.214 Obesity complicating childbirth; O16.4 Unspecified maternal hypertension, complicating childbirth; Z37.0 Single live birth
CPT/HCPCS: 36415; 76819; 81001; 82565; 82570; 83615; 83735; 84156; 84450; 84460; 84520; 84550; 85014; 85018; 85027; 86850; 86900; 86901; 88307; 90471; 90686; 90715; J0690; J1200; J1885; J2250; J2270; J2370; J2405; J2590; J2704; J2765; J3010; J3475; J7120; J7121

== ENCOUNTER 2019-12-12 05:26 | Outpatient (CLI) | payer OTHER ==
[2019-12-12] MEDS ORDERED: LACTATED RINGERS 500 ML IV ONE (05:53)
[2019-12-12 06:15] LABS: Bacteria,Urine 2+ /HPF (Negative); Bilirubin,Urine NEG (Negative); Blood,Urine NEG (Negative); Color,Urine Yellow (Yellow); Mucus,Urine 1+ /HPF; Protein,Urine <15 mg/dL mg/dL (Negative)
[2019-12-12 06:32] VITALS: BP 134/64
== END 2019-12-12 06:43 | disposition still patient (30) ==
LOC: TRG 05:26
PROVIDERS: ATTEND Obstetrics & Gynecology
DX: R07.9 Chest pain, unspecified (principal)
CPT/HCPCS: 81001; 82962

== ENCOUNTER 2019-12-12 06:51 | Emergency (ER) | payer SELFPAY ==
[2019-12-12 06:59] VITALS: BP 130/82
[2019-12-12] MEDS ORDERED: ASPIRIN 325 MG TAB PO ONE (06:59)
[2019-12-12 08:39] LABS: Basophils % (Auto) 0.2 % (0.0-1.8); Eosinophils # (Auto) 0.1 K/mm3 (0.0-0.4); Eosinophils % (Auto) 0.8 % (0.0-4.3); Hematocrit 34.1 % (30.3-42.9); Lymphocytes # (Auto) 3.5 K/mm3 (1.2-5.4); Mean Corpuscular HGB Conc 32 % (30-34); Mean Corpuscular Volume 83 fl (79-97); Monocytes # (Auto) 0.6 K/mm3 (0.0-0.8); Monocytes % (Auto) 4.5 % (0.0-7.3); Platelet Count 343 K/mm3 (140-440); Red Blood Count 4.11 M/mm3 (3.65-5.03); Red Cell Distribution Width 15.3 % (13.2-15.2)
[2019-12-12 09:22] LABS: BUN/Creatinine Ratio 18; Blood Urea Nitrogen 7 mg/dL (7-17); Calcium 8.7 mg/dL (8.4-10.2); Hemolysis Index 0
[2019-12-12] MEDS ORDERED: FAMOTIDINE 20 MG TAB PO ONE (09:31)
--- NOTE | 2019-12-12 09:31 | Emergency Department Report ---
ED General Adult HPI - General Chief complaint: Chest Pain Stated complaint: CHEST PAIN Time Seen by Provider: 12/12/19 08:41 Source: patient Mode of arrival: Ambulatory Limitations: No Limitations - History of Present Illness Initial comments: This is a 24-year-old G2, P1 currently at 28 weeks gestation presents the ED complaining of midsternal chest pain that started at 2 AM this morning. Patient states that pain was not radiating elsewhere. Patient denies any injuries to the chest or recent upper respiratory infection or coughing, shortness of breath. Patient denies vaginal bleeding or leaking. Patient states baby is moving just fine. Patient states she was evaluated at labor and delivery and was cleared by labor and delivery today prior to arrival to the ED - Related Data Home Medications Medication Instructions Recorded Confirmed Last Taken Vitamin 1 tab PO DAILY 10/05/17 10/19/17 10/18/17 10:00 Previous Rx's Medication Instructions Recorded Last Taken Type Ibuprofen [Motrin] 800 mg PO Q8HR PRN #30 tablet 10/21/17 Unknown Rx oxyCODONE /ACETAMINOPHEN [Percocet 1 tab PO Q6HR PRN #30 tablet 10/21/17 Unknown Rx 5/325] Allergies Allergy/AdvReac Type Severity Reaction Status Date / Time No Known Allergies Allergy Unverified 12/01/14 23:27 ED Review of Systems ROS: Stated complaint: CHEST PAIN Other details as noted in HPI Comment: All other systems reviewed and negative ED Past Medical Hx - Past Medical History Previous Medical History?: Yes Hx Hypertension: Yes (preeclampsia) Hx Congestive Heart Failure: No Hx Diabetes: No Hx Deep Vein Thrombosis: No Hx Renal Disease: No Hx Sickle Cell Disease: No Hx Seizures: No Hx Asthma: No Hx COPD: No Hx HIV: No - Surgical History Past Surgical History?: Yes Additional Surgical History: c-sec - Social History Smoking Status: Current Every Day Smoker Substance Use Type: None - Medications Home Medications: Home Medications Medication Instructions Recorded Confirmed Last Taken Type Vitamin 1 tab PO DAILY 10/05/17 10/19/17 10/18/17 10:00 History Ibuprofen [Motrin] 800 mg PO Q8HR PRN #30 tablet 10/21/17 Unknown Rx oxyCODONE /ACETAMINOPHEN [Percocet 1 tab PO Q6HR PRN #30 tablet 10/21/17 Unknown Rx 5/325] ED Physical Exam - General Limitations: No Limitations General appearance: alert, in no apparent distress - Head Head exam: Present: atraumatic, normocephalic - Eye Eye exam: Present: normal appearance - ENT ENT exam: Present: mucous membranes moist - Neck Neck exam: Present: normal inspection - Respiratory Respiratory exam: Present: normal lung sounds bilaterally. Absent: respiratory distress, wheezes, rales, rhonchi, chest wall tenderness - Cardiovascular Cardiovascular Exam: Present: regular rate, normal rhythm, normal heart sounds. Absent: systolic murmur, diastolic murmur, rubs, gallop - GI/Abdominal GI/Abdominal exam: Present: soft, normal bowel sounds - Extremities Exam Extremities exam: Present: normal inspection - Back Exam Back exam: Present: normal inspection - Neurological Exam Neurological exam: Present: alert, oriented X3 - Psychiatric Psychiatric exam: Present: normal affect, normal mood - Skin Skin exam: Present: warm, dry, intact, normal color. Absent: rash ED Course Vital Signs 12/12/19 06:56 Temperature 98.6 F Pulse Rate 91 H Respiratory 18 Rate Blood Pressure 130/82 O2 Sat by Pulse 97 Oximetry ED Medical Decision Making - Lab Data Result diagrams: 12/12/19 07:37 12/12/19 07:37 Laboratory Last Values WBC 14.0 K/mm3 (4.5-11.0) H 12/12/19 07:37 RBC 4.11 M/mm3 (3.65-5.03) 12/12/19 07:37 Hgb 11.0 gm/dl (10.1-14.3) 12/12/19 07:37 Hct 34.1 % (30.3-42.9) 12/12/19 07:37 MCV 83 fl (79-97) 12/12/19 07:37 MCH 27 pg (28-32) L 12/12/19 07:37 MCHC 32 % (30-34) 12/12/19 07:37 RDW 15.3 % (13.2-15.2) H 12/12/19 07:37 Plt Count 343 K/mm3 (140-440) 12/12/19 07:37 Lymph % (Auto) 25.0 % (13.4-35.0) 12/12/19 07:37 Carson % (Auto) 4.5 % (0.0-7.3) 12/12/19 07:37 Eos % (Auto) 0.8 % (0.0-4.3) 12/12/19 07:37 Baso % (Auto) 0.2 % (0.0-1.8) 12/12/19 07:37 Lymph # 3.5 K/mm3 (1.2-5.4) 12/12/19 07:37 Carson # 0.6 K/mm3 (0.0-0.8) 12/12/19 07:37 Eos # 0.1 K/mm3 (0.0-0.4) 12/12/19 07:37 Baso # 0.0 K/mm3 (0.0-0.1) 12/12/19 07:37 Seg Neutrophils % 69.5 % (40.0-70.0) 12/12/19 07:37 Seg Neutrophils # 9.7 K/mm3 (1.8-7.7) H 12/12/19 07:37 Sodium 136 mmol/L (137-145) L 12/12/19 07:37 Potassium 3.9 mmol/L (3.6-5.0) 12/12/19 07:37 Chloride 103.0 mmol/L (98-107) 12/12/19 07:37 Carbon Dioxide 17 mmol/L (22-30) L 12/12/19 07:37 Anion Gap 20 mmol/L 12/12/19 07:37 BUN 7 mg/dL (7-17) 12/12/19 07:37 Creatinine 0.4 mg/dL (0.7-1.2) L 12/12/19 07:37 Estimated GFR > 60 ml/min 12/12/19 07:37 BUN/Creatinine Ratio 18 % 12/12/19 07:37 Glucose 88 mg/dL (65-100) 12/12/19 07:37 Calcium 8.7 mg/dL (8.4-10.2) 12/12/19 07:37 Troponin T < 0.010 ng/mL (0.00-0.029) 12/12/19 07:37 HCG, Quant 3638 mIU/mL (0-4) H 12/12/19 07:37 - EKG Data EKG shows normal: sinus rhythm Rate: normal - EKG Data Interpretation: normal EKG - Medical Decision Making This 24-year-old female presents to ED with chest pain that is now resolved. Patient states that she has an appointment coming up with her [employer]. Patient was cleared by labor and delivery and had no related symptoms in the ED. All labs were within normal limits. Discussed with the patient that acid reflux may cause burning-like chest pain especially during . Patient is in no acute or respiratory distress. Discussed follow-up with OB Critical care attestation.: If time is entered above; I have spent that time in minutes in the direct care of this critically ill patient, excluding procedure time. ED Disposition Clinical Impression: Atypical chest pain Disposition: DC- TO HOME OR SELFCARE Is pt being admited?: No Does the pt Need Aspirin: No Condition: Stable Instructions: Chest Pain (ED), Costochondritis (ED) Additional Instructions: Make sure to follow up with the p [employer] as discussed. Take Pepcid as needed for burning chest pain. Take Tylenol as needed for pain. If you have any worsening symptoms or develop new symptoms please return to ED immediately. Referrals: PRIMARY CARE [Primary Care Provider] - 3-5 Days [facility] [employer] [Provider Group] - 3-5 Days Forms: Work/School Release Form(ED) Time of Disposition: 10:47
== END 2019-12-12 11:22 | disposition home or self-care (01) ==
LOC: ED 06:51
DX: O26.893 Other specified pregnancy related conditions, third trimester (principal); R07.89 Other chest pain; O99.333 Smoking (tobacco) complicating pregnancy, third trimester; Z3A.28 28 weeks gestation of pregnancy
CPT/HCPCS: 36415; 80048; 84484; 84702; 85025; 93005; 93010; 99284

== ENCOUNTER 2020-01-09 17:49 | Outpatient (CLI) | payer SELFPAY ==
[2020-01-09 18:13] VITALS: BP 134/73
[2020-01-09] MEDS ORDERED: ACETAMINOPHEN 500 MG TAB PO ONE (18:42)
[2020-01-09 18:52] LABS: Bilirubin,Urine NEG (Negative); Blood,Urine NEG (Negative); Color,Urine Yellow (Yellow); Mucus,Urine 1+ /HPF; Protein,Urine <15 mg/dL mg/dL (Negative)
[2020-01-09] MEDS ORDERED: LACTATED RINGERS 1,000 ML IV SCH (19:00)
== END 2020-01-09 20:53 | disposition home or self-care (01) ==
LOC: TRG 17:49
PROVIDERS: ATTEND Obstetrics & Gynecology
DX: Z00.00 Encounter for general adult medical examination without abnormal findings (principal)
CPT/HCPCS: 81001

== ENCOUNTER 2020-01-27 01:34 | Outpatient (CLI) | payer SELFPAY ==
[2020-01-27 02:12] LABS: Hematocrit 33.9 % (30.3-42.9); Hemoglobin 11.1 gm/dl (10.1-14.3); Mean Corpuscular HGB Conc 33 % (30-34); Mean Corpuscular Volume 82 fl (79-97); Platelet Count 344 K/mm3 (140-440); Red Blood Count 4.16 M/mm3 (3.65-5.03); Red Cell Distribution Width 15.3 % (13.2-15.2)
[2020-01-27 02:17] LABS: Bacteria,Urine 2+ /HPF (Negative); Bilirubin,Urine NEG (Negative); Blood,Urine NEG (Negative); Color,Urine Yellow (Yellow); Mucus,Urine 2+ /HPF; Protein,Urine <15 mg/dL mg/dL (Negative); Urobilinogen,Urine < 2.0 mg/dL (<2.0)
[2020-01-27 02:29] LABS: Alanine Aminotransferase 7 units/L (7-56)
[2020-01-27 02:57] VITALS: BP 122/60
== END 2020-01-27 03:40 | disposition home or self-care (01) ==
LOC: TRG 01:34
PROVIDERS: ATTEND Obstetrics & Gynecology
DX: O26.893 Other specified pregnancy related conditions, third trimester (principal); R51 Headache; R42 Dizziness and giddiness; H53.8 Other visual disturbances; Z3A.35 35 weeks gestation of pregnancy; Z87.59 Personal history of other complications of pregnancy, childbirth and the puerperium
CPT/HCPCS: 36415; 59025; 81001; 82565; 83615; 84450; 84460; 84550; 85027

== ENCOUNTER 2020-02-13 10:58 | Outpatient (CLI) | payer OTHER ==
[2020-02-13 11:47] VITALS: BP 132/77
[2020-02-13 13:09] LABS: Bilirubin,Urine NEG (Negative); Color,Urine Yellow (Yellow)
[2020-02-13 13:10] LABS: Bacteria,Urine 4+ /HPF (Negative); Blood,Urine NEG (Negative); Mucus,Urine 3+ /HPF
--- NOTE | 2020-02-13 15:17 | Ultrasound Report ---
ULTRASOUND BIOPHYSICAL PROFILE INDICATION / CLINICAL INFORMATION: WELLBEING. COMPARISON: 02/05/20. FINDINGS: BREATHING MOVEMENT = 2 GROSS BODY MOVEMENT = 2 TONE = 2 QUALITATIVE AMNIOTIC FLUID VOLUME = 2 TOTAL BIOPHYSICAL SCORE = /8 AMNIOTIC FLUID = Deepest vertical pocket measures 3.1 cm. PRESENTATION: Cephalic. HEART RATE (beats per minute): 130 IMPRESSION: biophysical profile = 06/05 Signer Name: Carlos Maddox MD Signed: 02/13/2020 3:13 PM Workstation Name: [id number]
== END 2020-02-13 15:34 | disposition home or self-care (01) ==
LOC: TRG 10:58 → APU 10:58 → TRG 15:34
PROVIDERS: ATTEND Obstetrics & Gynecology
DX: O36.8130 Decreased fetal movements, third trimester, not applicable or unspecified (principal); O26.893 Other specified pregnancy related conditions, third trimester; M54.5 Low back pain; Z3A.37 37 weeks gestation of pregnancy
CPT/HCPCS: 59025; 76819; 81001; 87086

== ENCOUNTER 2020-02-19 10:32 | Inpatient (IN) | payer OTHER ==
[2020-02-19 12:07] LABS: Bacteria,Urine 4+ /HPF (Negative); Bilirubin,Urine NEG (Negative); Blood,Urine NEG (Negative); Color,Urine Yellow (Yellow); Mucus,Urine 1+ /HPF; Protein,Urine <15 mg/dL mg/dL (Negative); Urobilinogen,Urine < 2.0 mg/dL (<2.0)
[2020-02-19 12:38] LABS: Hematocrit 37.1 % (30.3-42.9); Mean Corpuscular HGB Conc 32 % (30-34); Mean Corpuscular Volume 82 fl (79-97); Platelet Count 334 K/mm3 (140-440); Red Blood Count 4.52 M/mm3 (3.65-5.03); Red Cell Distribution Width 16.8 % (13.2-15.2)
[2020-02-19 13:01] LABS: Alanine Aminotransferase 6 units/L (7-56); Uric Acid 4.6 mg/dL (3.5-7.6)
[2020-02-19] MEDS ORDERED: ACETAMINOPHEN 325 MG TAB ONE (13:43)
[2020-02-19] MEDS ORDERED: ACETAMINOPHEN 325 MG TAB PO ONE (14:00)
[2020-02-19] MEDS ORDERED: BICITRA ORAL LIQD 30ML PO ONE ×2 (14:46→15:00)
[2020-02-19] MEDS ORDERED: FAMOTIDINE 20 MG/2 ML INJ IV ONE ×2 (14:46→15:00)
[2020-02-19] MEDS ORDERED: METOCLOPRAMIDE 10 MG/2 ML INJ IV ONE ×2 (14:46→15:00)
[2020-02-19] MEDS ORDERED: ceFAZolin/STERILE WATER 2 GM/20 ML SYRINGE IV NR (15:00)
[2020-02-19] MEDS ORDERED: OXYTOCIN 20 UNIT/1000ML DRIP 20 UNITS/1,000 ML BAG IV SCH ×3 (15:00→20:00)
[2020-02-19] MEDS ORDERED: LACTATED RINGERS 1,000 ML IV SCH ×3 (15:00→20:00)
--- NOTE | 2020-02-19 17:08 | History and Physical Report ---
History of Present Illness Date of examination: 02/19/20 Date of admission: 02/19/20 10:33 Chief complaint: headache, elevated blood pressure History of present illness: Pt is a 24 year old -[place] female AD 02/29/20 at 38w4d who presents with headache and elevated blood pressures 140-150/90s. She reports good movement, but denies vaginal bleeding or leakage of fluid. She has had care at [facility] since 26 wks complicated by morbid obesity, depression on fluxoetine 10 mg daily, previous section x 1, genital herpes without lesions. She is GBS negative. 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 Family/Genetic History: heart disease Social history: no significant social history, other (depression; h/o suicidal ideation ) - Obstetrical History Expected Date of Delivery: 02/29/20 Actual Gestation: 38 Week(s) 4 Day(s) : 2 Para: 1 Hx # Term Pregnancies: 0 Number of Pregnancies: 1 Spontaneous Abortions: 0 Induced : 0 Number of Living Children: 1 Medications and Allergies Allergies Allergy/AdvReac Type Severity Reaction Status Date / Time No Known Allergies Allergy Verified 01/09/20 18:12 Home Medications Medication Instructions Recorded Confirmed Last Taken Type Vitamin 1 tab PO DAILY 10/05/17 10/19/17 10/18/17 10:00 History Ibuprofen [Motrin] 800 mg PO Q8HR PRN #30 tablet 10/21/17 Unknown Rx oxyCODONE /ACETAMINOPHEN [Percocet 1 tab PO Q6HR PRN #30 tablet 10/21/17 Unknown Rx 5/325] Active Meds: Active Medications Cefazolin Sodium (Ancef/Sterile Water 2 Gm/20 Ml) 2 gm IV PREOP NR Stop: 02/19/20 23:59 Oxytocin/Sodium Chloride (Pitocin/Ns 20 Unit/1000ml Drip) 20 units in 1,000 mls @ 0 mls/hr IV TITR [facility] Lactated Ringer's (Lactated Ringers) 1,000 mls @ 2,250 mls/hr IV PREOP [facility] Stop: 02/20/20 15:27 Review of Systems All systems: negative - Vital Signs Vital signs: Vital Signs Pulse Pulse Ox 79 98 02/19/20 11:01 02/19/20 11:01 Temp Pulse Resp BP Pulse Ox 98.3 F 87 18 139/74 99 02/19/20 11:09 02/19/20 17:06 02/19/20 13:45 02/19/20 16:49 02/19/20 17:06 - Physical Exam Breasts: Positive: deferred Abdomen: Positive: soft (gravid, obese ) Uterus: Positive: enlarged (gravid ) Extremities: Positive: edema (trace ) - Obstetrical FHR: auscultation normal Uterine Contraction Monitor Mode: External Uterine Contraction Pattern: Irregular Uterine Tone Measurement Phase: Resting Uterine Contraction Intensity: Mild Results Result Diagrams: 02/19/20 12:20 02/19/20 12:20 Abnormal lab results 02/19/20 02/19/20 Range/Units 12:20 12:20 WBC 11.9 H (4.5-11.0) K/mm3 MCH 27 L (28-32) pg RDW 16.8 H (13.2-15.2) % Creatinine 0.4 L (0.7-1.2) mg/dL ALT 6 L (7-56) units/L All other labs normal. Assessment and Plan A: IUP at 38w4d Severe Preeclampsia Previous x 1 Morbid Obesity GBS Negative P: PIH panel Proceed with repeat and other indicated procedures Pt will receive magnesium sulfate for seizure prophylaxis for 24 hours
[2020-02-19] MEDS ORDERED: ceFAZolin/STERILE WATER 2 GM/20 ML SYRINGE IV ONE (17:45)
[2020-02-19] MEDS ORDERED: PHENYLEPHRINE/NS 1,000 MCG/10 ML SYRINGE (OR USE) IV ONE (18:00)
[2020-02-19] MEDS ORDERED: KETOROLAC 30 MG/1 ML INJ ONE (18:07)
[2020-02-19] MEDS ORDERED: DEXMEDETOMIDINE 200 MCG/2 ML VIAL IV ONE (18:07)
[2020-02-19] MEDS ORDERED: ONDANSETRON 4 MG/2 ML INJ ONE (18:07)
[2020-02-19] MEDS ORDERED: OXYTOCIN 10 UNIT/1 ML INJ ONE (18:24)
--- NOTE | 2020-02-19 19:02 | Procedure Note ---
OB Delivery Note - Delivery Date of Delivery: 02/19/20 Surgeon: CASSIUS HERNANDEZ Estimated blood loss: 1000cc - Section Preop diagnosis: other (Severe Preeclampsia, previous section ) Postop diagnosis: same section procedure: section, repeat low transverse Disposition: PACU Narrative: Please see operative report - A at 1 minute: 8 at 5 minutes: 9 Gender: Male (2843g (6lb 4.2 oz) @ 1815 pm)
[2020-02-19] MEDS ORDERED: SIMETHICONE 80 MG CHEW TAB PO PRN (19:03)
[2020-02-19] MEDS ORDERED: WITCH HAZEL/ GLYCERIN PAD TP PRN (19:03)
[2020-02-19] MEDS ORDERED: MAGNESIUM HYDROXIDE (MOM) ORAL LIQD UDC PO PRN (19:03)
[2020-02-19] MEDS ORDERED: MORPHINE 4 MG/1 ML INJ IV PRN (19:03)
[2020-02-19] MEDS ORDERED: MAGNESIUM SULFATE 4 GM/100 ML BAG IV ONE (19:03)
[2020-02-19] MEDS ORDERED: NALOXONE 0.4 MG/1 ML INJ IV PRN (19:03)
[2020-02-19] MEDS ORDERED: ONDANSETRON 4 MG/2 ML INJ IV PRN ×2 (19:03→20:07)
[2020-02-19] MEDS ORDERED: CALCIUM GLUCONATE 1000 MG/10 ML INJ IV ONE (19:03)
[2020-02-19] MEDS ORDERED: MORPHINE 2 MG/1 ML INJ IV PRN (19:03)
[2020-02-19] MEDS ORDERED: hydrALAZINE 20 MG/1 ML INJ IV PRN (19:03)
[2020-02-19] MEDS ORDERED: LANOLIN/ZINC/DIMETHICONE (LANSINOH) 7 GM TP PRN (19:03)
--- NOTE | 2020-02-19 19:03 | Operative Report ---
Operative Report Operative Report: Date of procedure: February 19, 2020 Preoperative diagnosis: 1) IUP at 38w4d 2)Severe Preeclampsia 3) Previous tristan arean x 1 4) Morbid Obesity Postoperative diagnosis: Same 5) Intrabdominal Adhesions Procedure: 1) Repeat low transverse section 2) Lysis of Adhesions Surgeon: Eve Ochoa M.D. Anesthesia: Regional Findings: 1) Viable male , Apgars 8 and 9, weight 2843 g, (6 lb 4.2 oz) in cephalic presentation 2) Normal-appearing uterus ovaries and tubes Estimated blood loss: 1000 mL IV fluids:600 mL Urine output: 100 mL, clear at the end of the procedure Drains: Carias to gravity Specimens: Placenta to pathology Complications:None. Counts correct x 3 Disposition: Stable to PACU Indication for procedure: Pt is a 24 year old at 38w4d with a h/o previous who presents with severe preeclampsia. The decision was made to proceed with repeat section. Operation in detail: After the risks, benefits, alternatives and complications were explained to the patient she gave informed consent for the procedure. She was subsequently taken to the operating room where regional anesthesia was noted to be adequate. She was subsequently placed in the dorsal supine position with leftward tilt and prepped and draped in a normal sterile fashion. heart tones were noted prior to incision. A timeout was performed. A Pfannenstiel skin incision was made with the knife and carried down to the layer of the fascia with the Bovie. The fascia was incised in the midline and the fascial incision was extended bilaterally with the Bovie. The fascial incision was then stretched. The rectus muscles were then in the midline and partially transected for adequate visualization. The peritoneum was then entered sharply between two Darlene clamps. The peritoneal incision was extended with good visualization of the bladder. Ten minutes were then spent in lysis of adhesions of the parietal peritoneum to the lower uterine segment using a combination of blunt and sharp dissection. The peritoneal incision was then stretched. An Bob retractor was placed. The bladder blade was then placed. A transverse incision was made in the lower uterine segment with a knife and extended bilaterally with the bandage scissors. Amniotomy was performed with egress of clear fluid. head delivered with ease, followed by shoulders and body. bulb suctioned at delivery. Cord clamped and cut. handed to NICU staff in attendance. Cord blood was collected. The placenta was then delivered manually. The uterus was then exteriorized and cleared of all clots and debris. The hysterotomy was then reapproximated with 0 Vicryl in a running locked fashion. A second layer of the same suture was used in imbricating fashion. The hysterotomy was inspected and hemostasis was noted. The gutters were irrigated and cleared of all clots and debris. The hysterotomy was again inspected and noted to be hemostatic. Surgicel was placed over the hysterotomy. Interceed was placed over the anterior surface of the uterus. The Bob retractor was removed. The uterus was placed back into the peritoneal cavity. The peritoneum was reapproximated with 2-0 Vicryl in a running fashion incorporating the rectus muscles. Surgicel was placed over the rectus muscles. The fascia was reapproximated with 0 Vicryl in a running fashion. The subcutaneous tissue was reapproximated with 3-0 Vicryl in a running fashion. The skin was reapproximated with 4-0 Vicryl in a subcuticular fashion. The incision was then covered with steri strips and a pressure dressing. The procedure was then ended. The patient tolerated the procedure well and was taken to the PACU in stable condition. All instrument, lap, and needle counts were correct 3.
--- NOTE | 2020-02-19 19:49 | Anesthesia Consultation ---
Anesthesia Consult and Med Hx Date of service: 02/19/20 - Airway Anesthetic Teeth Evaluation: Poor ROM Head & Neck: Adequate Mental/Hyoid Distance: Adequate Mallampati Class: Class III Intubation Access Assessment: Probably Good - Pulmonary Exam CTA: Yes - Cardiac Exam Cardiac Exam: RRR - Pre-Operative Health Status ASA Pre-Surgery Classification: ASA3 Proposed Anesthetic Plan: Spinal - Pre-Anesthesia Comment Pre-Anesthesia Comments: PSH: csection, wisdom teeth - Pulmonary Hx Smoking: Yes (stoped 11/2018) Hx Asthma: No Hx Respiratory Symptoms: No SOB: No COPD: No Home Oxygen Therapy: No Hx Pneumonia: No Hx Sleep Apnea: No - Cardiovascular System Hx Hypertension: Yes (preeclampsia) Hx Coronary Artery Disease: No Hx Heart Attack/AMI: No Hx Angina: No Hx Percutaneous Transluminal Coronary Angioplasty (PTCA): No Hx Cardia Arrhythmia: No Hx Pacemaker: No Hx Internal Defibrillator: No Hx Valvular Heart Disease: No Hx Heart Murmur: No Hx Peripheral Vascular Disease: No - Central Nervous System Hx Neuromuscular Disorder: No Hx Seizures: No CVA: No Hx Back Pain: Yes (neck and back pain) Hx Psychiatric Problems: No - Gastrointestinal Hx Ulcer: No Hx Gastroesophageal Reflux Disease: Yes - Endocrine Hx Renal Disease: No Hx End Stage Renal Disease: No Hx Cirrhosis: No Hx Liver Disease: No Hx Insulin Dependent Diabetes: No Hx Non-Insulin Dependent Diabetes: No Hx Thyroid Disease: No Hx Hypothyroidism: No Hx Hyperthyroidism: No - Hematic Hx Anemia: No Hx Sickle Cell Disease: No - Other Systems Hx Alcohol Use: No Hx Substance Use: No Hx Cancer: No Hx Obesity: Yes (morbid obesity, bmi > 40)
--- NOTE | 2020-02-19 19:52 | Anesthesia Day of Surgery ---
Anesthesia Day of Surgery - Day of Surgery Patient Examined: Yes Patient H&P Reviewed: Yes Patient is NPO: Yes Beta Blockers: No Cardiac Clearance: No Pulmonary Clearance: No Dimitris's Test: N/A
--- NOTE | 2020-02-19 19:52 | Post Anesthesia Evaluation ---
- Post Anesthesia Evaluation Patient Participated: Yes Airway Patent: Yes Stable Respiratory Function: Yes Nausea/Vomiting: No Temp > 96.8F: Yes Pain Manageable: Yes Adequeate Hydration: Yes Anesthesia Complications: No Block Receding Appropriately: Yes Patient on Ventilator: No
[2020-02-19] MEDS ORDERED: D5W/LACTATED RINGERS 1,000 ML IV SCH (20:00)
[2020-02-19] MEDS ORDERED: MAGNESIUM SULFATE 40GM/1000ML 40 GM/1,000 ML BAG IV SCH (20:00)
[2020-02-19] MEDS: HYDROmorphone 1 MG/1 ML INJ IV PRN ×2 (20:32→20:40)
[2020-02-19] MEDS ORDERED: miSOPROStol 200 MCG TAB PR ONE (21:06)
[2020-02-19] MEDS ORDERED: miSOPROStol 200 MCG TAB ONE (21:11)
[2020-02-19] MEDS: ceFAZolin/NS 1 GM/50 ML 1 GM/50 ML BAG IV SCH (21:33)
[2020-02-20] MEDS: KETOROLAC 30 MG/1 ML INJ IV SCH ×3 (00:31→11:57)
[2020-02-20] MEDS: oxyCODONE /ACETAMINOPHEN 5-325MG TAB PO PRN ×2 (01:37→22:42)
[2020-02-20] MEDS: ceFAZolin/NS 1 GM/50 ML 1 GM/50 ML BAG IV SCH (05:23)
[2020-02-20 06:45] LABS: Hematocrit 29.5 % (30.3-42.9); Hemoglobin 9.4 gm/dl (10.1-14.3)
--- NOTE | 2020-02-20 07:58 | Progress Note ---
Assessment and Plan A: POD#1 s/p repeat at term, severe preeclampsia on magnesium sulfate for seizure prophylaxis, morbid obesity, acute blood loss anemia P: Routine postoperative care. Magnesium sulfate for 24 hours postoperatively. Monitor clinically Subjective - Subjective Date of service: 02/20/20 Principal diagnosis: s/p repeat section, severe preeclampsia, morbid obesity Interval history: Pt with heavy lochia postop, given misoprostol 800 mcg per rectum with improvement in flow. Pt uncomfortable in bed, but no unusual complaints. Patient reports: pain well controlled, no voiding normally (martinez in place), no flatus, no bowel movement, no ambulating normally (SCDs in place) [place]: doing well Objective - Vital Signs Latest vital signs: Vital Signs Temp Pulse Resp BP BP Pulse Ox 02/20/20 07:52 89 100 02/20/20 07:51 100 H 144/100 02/20/20 07:43 84 99 02/20/20 07:38 82 100 02/20/20 07:35 80 86 02/20/20 07:33 94 H 99 02/20/20 07:28 101 H 99 02/20/20 07:24 97.8 F 02/20/20 07:23 104 H 100 02/20/20 07:21 103 H 131/69 02/20/20 07:18 85 97 02/20/20 07:13 86 97 02/20/20 07:08 83 98 02/20/20 07:03 88 100 02/20/20 06:58 90 97 02/20/20 06:53 85 98 02/20/20 06:51 86 140/66 02/20/20 06:48 99 H 100 02/20/20 06:43 100 H 100 02/20/20 06:38 106 H 100 02/20/20 06:33 85 97 02/20/20 06:28 89 97 02/20/20 06:23 93 H 100 02/20/20 06:21 85 132/62 02/20/20 06:18 89 97 02/20/20 06:13 84 98 02/20/20 06:08 78 98 02/20/20 06:03 83 96 02/20/20 05:58 81 97 02/20/20 05:53 79 97 02/20/20 05:51 80 131/60 04/24/20 05:48 80 98 04/24/20 05:43 80 96 02/20/20 05:38 84 96 02/20/20 05:33 81 96 02/20/20 05:28 89 99 02/20/20 05:23 85 95 0420 05:21 81 130/60 20 05:18 83 96 02/20/20 05:13 86 96 02/20/20 05:08 84 95 02/20/20 05:03 87 98 02/20/20 04:58 101 H 99 02/20/20 04:53 82 97 02/20/20 04:51 100 H 137/74 02/20/20 04:48 93 H 96 02/20/20 04:43 90 96 02/20/20 04:38 97 H 96 02/20/20 04:33 96 H 96 02/20/20 04:28 92 H 96 02/20/20 04:24 90 94 02/20/20 04:23 85 97 02/20/20 04:21 111 H 130/61 02/20/20 04:18 106 H 97 02/20/20 04:13 101 H 97 02/20/20 04:08 81 95 02/20/20 04:03 77 96 02/20/20 03:58 86 98 02/20/20 03:53 90 100 02/20/20 03:51 85 143/66 02/20/20 03:48 94 H 97 02/20/20 03:43 80 96 02/20/20 03:38 92 H 96 02/20/20 03:33 86 96 02/20/20 03:28 101 H 97 02/20/20 03:23 107 H 97 02/20/20 03:21 106 H 120/70 20 03:18 82 96 20 03:13 81 95 02/20/20 03:08 81 96 02/20/20 03:03 88 95 02/20/20 02:58 85 96 02/20/20 02:53 94 H 97 02/20/20 02:51 86 136/63 02/20/20 02:48 85 95 02/20/20 02:43 85 96 02/20/20 02:38 81 95 02/20/20 02:33 102 H 97 02/20/20 02:28 88 97 02/20/20 02:23 102 H 97 02/20/20 02:21 95 H 136/70 20 02:18 97 H 98 02/20/20 02:15 18 98 02/20/20 02:13 90 98 02/20/20 02:08 89 99 02/20/20 02:03 94 H 99 02/20/20 01:58 90 99 02/20/20 01:53 72 98 02/20/20 01:51 82 137/71 02/20/20 01:48 73 96 02/20/20 01:43 75 96 02/20/20 01:38 77 99 02/20/20 01:37 18 02/20/20 01:33 95 H 97 02/20/20 01:30 20 99 02/20/20 01:28 75 96 02/20/20 01:23 81 97 02/20/20 01:21 96 H 141/67 02/20/20 01:20 86 94 02/20/20 01:18 81 96 02/20/20 01:13 78 95 02/20/20 01:08 77 97 02/20/20 01:03 82 96 20 00:58 85 97 20 00:53 86 97 02/20/20 00:51 80 140/68 20 00:48 93 H 98 02/20/20 00:43 89 98 02/20/20 00:39 20 100 20 00:38 81 99 20 00:33 82 100 02/20/20 00:31 20 20 00:28 84 95 02/20/20 00:23 79 96 20 00:21 77 137/62 20 00:18 73 98 20 00:13 76 98 20 00:08 81 95 20 00:03 77 96 02/20/20 00:02 80 94 02/19/20 23:58 84 95 20 23:53 71 98 20 23:51 85 139/64 0420 23:48 82 99 02/19/20 23:44 18 02/19/20 23:43 74 98 02/19/20 23:40 18 98 02/19/20 23:38 92 H 98 02/19/20 23:33 72 100 02/19/20 23:28 78 99 02/19/20 23:23 86 98 02/19/20 23:21 79 150/82 04 23:18 80 97 04 23:13 83 98 02/19/20 23:08 92 H 99 02/19/20 23:03 90 99 02/19/20 22:58 77 97 02/19/20 22:53 78 98 02/19/20 22:51 75 142/71 02/19/20 22:48 74 99 02/19/20 22:43 86 98 02/19/20 22:42 85 94 02/19/20 22:38 71 96 02/19/20 22:33 74 95 02/19/20 22:30 80 18 100 02/19/20 22:28 76 95 02/19/20 22:23 74 93 02/19/20 22:21 67 135/64 02/19/20 22:18 74 95 02/19/20 22:13 82 99 02/19/20 22:08 90 99 02/19/20 22:03 71 97 02/19/20 21:58 82 97 02/19/20 21:53 82 98 02/19/20 21:48 83 97 02/19/20 21:46 90 131/70 02/19/20 21:43 92 H 99 02/19/20 21:41 82 129/65 02/19/20 21:38 70 97 02/19/20 21:36 77 146/66 02/19/20 21:33 70 98 02/19/20 21:31 73 141/67 20 21:30 18 99 20 21:28 83 97 20 21:26 68 132/65 02/19/20 21:23 71 98 04 21:21 68 138/68 02/19/20 21:02 20 0420 20:40 18 0420 20:32 18 02/19/20 20:10 97.7 F 67 18 139/76 99 02/19/20 19:55 67 20 127/88 99 02/19/20 19:40 69 19 130/77 99 20 19:25 72 15 130/74 98 0420 19:20 64 15 120/78 97 02/19/20 19:15 67 20 126/77 100 02/19/20 19:10 62 22 125/58 99 02/19/20 19:05 98.0 F 64 22 117/55 99 02/19/20 17:06 87 99 02/19/20 17:01 80 98 02/19/20 16:56 76 98 02/19/20 16:51 80 98 02/19/20 16:49 77 139/74 02/19/20 16:46 79 99 02/19/20 16:41 74 100 02/19/20 16:36 81 98 02/19/20 16:31 92 H 98 02/19/20 16:26 97 H 98 02/19/20 16:21 90 97 02/19/20 16:19 72 145/78 02/19/20 16:16 84 98 02/19/20 16:11 81 98 02/19/20 16:06 84 98 02/19/20 16:04 96 H 146/81 02/19/20 16:01 95 H 98 02/19/20 15:56 91 H 99 02/19/20 15:51 84 97 02/19/20 15:50 91 H 143/79 02/19/20 15:46 88 98 02/19/20 15:44 93 H 134/81 02/19/20 15:41 102 H 99 02/19/20 15:36 79 99 02/19/20 15:34 91 H 133/72 02/19/20 15:31 79 98 02/19/20 15:26 95 H 99 02/19/20 15:21 84 98 02/19/20 15:19 69 138/71 02/19/20 15:16 72 98 02/19/20 15:11 88 98 02/19/20 15:06 86 96 02/19/20 15:04 83 142/86 02/19/20 15:01 88 97 02/19/20 14:56 78 97 02/19/20 14:51 75 98 02/19/20 14:49 85 136/81 02/19/20 14:46 71 96 02/19/20 14:41 76 97 02/19/20 14:36 95 H 98 02/19/20 14:34 87 135/81 02/19/20 14:31 86 97 02/19/20 14:26 82 96 02/19/20 14:21 80 97 02/19/20 14:19 82 154/79 02/19/20 14:16 81 97 02/19/20 14:11 81 154/75 02/19/20 13:56 72 97 02/19/20 13:51 83 98 02/19/20 13:49 82 161/78 02/19/20 13:46 90 99 02/19/20 13:45 18 02/19/20 13:34 83 154/104 02/19/20 13:33 87 95 02/19/20 13:28 84 97 02/19/20 13:23 86 98 02/19/20 13:19 80 144/79 87 02/19/20 13:18 90 97 02/19/20 13:13 81 97 02/19/20 13:08 77 98 02/19/20 13:04 70 145/79 02/19/20 13:03 72 97 02/19/20 12:58 68 97 02/19/20 12:53 88 97 02/19/20 12:48 84 97 02/19/20 12:43 79 98 02/19/20 12:38 78 99 02/19/20 12:36 82 140/89 02/19/20 12:35 80 156/99 02/19/20 12:33 77 99 02/19/20 12:28 83 98 02/19/20 12:23 78 99 02/19/20 12:19 78 158/85 02/19/20 12:18 79 99 02/19/20 12:13 72 99 02/19/20 12:08 83 99 02/19/20 12:07 78 152/82 02/19/20 12:04 77 159/90 02/19/20 12:03 77 97 02/19/20 11:51 78 98 02/19/20 11:49 75 142/82 02/19/20 11:46 84 97 02/19/20 11:41 79 97 02/19/20 11:37 74 142/83 02/19/20 11:36 78 98 02/19/20 11:31 83 99 02/19/20 11:26 75 98 02/19/20 11:21 85 98 04/23/20 11:20 80 136/79 02/19/20 11:16 78 98 02/19/20 11:11 74 98 02/19/20 11:09 98.3 F 73 18 142/75 98 02/19/20 11:06 81 98 02/19/20 11:02 80 142/75 02/19/20 11:01 79 98 Intake and Output 02/19/20 02/20/20 02/20/20 22:59 06:59 14:59 Intake Total 1250 Output Total 400 300 100 Balance 850 -300 -100 Intake: IV 1250 ANCEF/NS 1 GM/50 ML 1 gm 50 In 50 ml @ 100 mls/hr IV Q8H [facility] Rx#:[id number] Output: Urine 400 300 100 Indwelling Catheter 200 300 100 Other: Total, Output Amount 100 50 100 Estimated Blood Loss 600 - Exam Breasts: Present: deferred Abdomen: Present: soft (obese), tenderness (appropriately ) Uterus: Present: fundal height at umbilicus Extremities: Present: edema (trace) Incision: Present: dressed - Labs Labs: Abnormal lab results 02/19/20 02/19/20 02/20/20 Range/Units 12:20 12:20 06:21 WBC 11.9 H (4.5-11.0) K/mm3 Hgb (10.1-14.3) gm/dl Hct (30.3-42.9) % MCH 27 L (28-32) pg RDW 16.8 H (13.2-15.2) % Creatinine 0.4 L (0.7-1.2) mg/dL Magnesium 4.00 H (1.7-2.3) mg/dL ALT 6 L (7-56) units/L 02/20/20 Range/Units 06:21 WBC (4.5-11.0) K/mm3 Hgb 9.4 L (10.1-14.3) gm/dl Hct 29.5 L D (30.3-42.9) % MCH (28-32) pg RDW (13.2-15.2) % Creatinine (0.7-1.2) mg/dL Magnesium (1.7-2.3) mg/dL ALT (7-56) units/L
[2020-02-20] MEDS: FERROUS SULFATE 325 MG TAB PO SCH (11:57)
[2020-02-20] MEDS ORDERED: ACETAMINOPHEN 325 MG TAB PO ONE (16:18)
[2020-02-20] MEDS ORDERED: MEASLES, MUMPS & RUBELLA 12,500 UNIT/0.5 ML VACCINE SUB-Q ONE (19:05)
[2020-02-20] MEDS ORDERED: TETANUS,DIPH,PERTUSS(ACELL) VACCINE 0.5 ML SYRINGE IM ONE (19:05)
[2020-02-21] MEDS: IBUPROFEN 800 MG TAB PO PRN ×2 (06:18→23:15)
[2020-02-21 09:06] LABS: Hemoglobin 8.8 gm/dl (10.1-14.3)
--- NOTE | 2020-02-21 10:38 | Progress Note ---
Assessment and Plan A: POD2 s/p repeat LTCS/lysis of adhesions/hemorrhage Preeclampsia with severe features s/p mag sulfate x24 hr Acute anemia due to hemorrhage Vital signs sable P: Routine pp care Ferrous sulfate supplementation Anticipate d/c to home on POD3 Subjective - Subjective Date of service: 02/21/20 Principal diagnosis: s/p repeat section, severe preeclampsia, morbid obesity Interval history: POD2 s/p repeat LTCS with lysis of adhesions, hemorrhage s/p Cytotec, preeclampsia with severe features s/p mag sulfate x24 hr. Patient reports: appetite normal, voiding normally, pain well controlled, flatus, ambulating normally [place]: doing well, nursing well Objective - Vital Signs Latest vital signs: Vital Signs Temp Pulse Resp BP BP Pulse Ox 02/21/20 09:00 98.3 F 87 18 114/71 02/21/20 06:01 98.4 F 92 H 18 124/73 95 02/21/20 01:32 98.4 F 111 H 18 138/71 92 02/20/20 22:25 98.1 F 107 H 18 143/80 96 02/20/20 20:51 100 H 123/70 02/20/20 20:45 97.7 F 108 H 18 117/59 02/20/20 20:21 108 H 117/59 02/20/20 19:51 107 H 117/51 02/20/20 19:35 97.8 F 106 H 18 132/70 99 02/20/20 19:23 18 02/20/20 19:21 106 H 132/70 02/20/20 19:08 104 H 99 02/20/20 19:03 112 H 98 02/20/20 18:58 108 H 99 02/20/20 18:53 112 H 99 02/20/20 18:51 111 H 130/66 02/20/20 18:50 16 100 02/20/20 18:48 108 H 97 02/20/20 18:45 105 H 128/63 02/20/20 18:43 107 H 97 02/20/20 18:00 98.7 F 02/20/20 17:57 116 H 97 02/20/20 17:52 114 H 97 02/20/20 17:47 117 H 97 02/20/20 17:42 110 H 97 02/20/20 17:37 104 H 96 02/20/20 17:32 107 H 97 02/20/20 17:27 111 H 98 02/20/20 17:22 118 H 99 02/20/20 17:21 114 H 151/67 02/20/20 17:17 103 H 97 02/20/20 17:12 102 H 97 02/20/20 17:07 105 H 98 02/20/20 17:02 109 H 99 02/20/20 17:00 16 98 02/20/20 16:57 111 H 98 02/20/20 16:52 111 H 98 02/20/20 16:51 107 H 157/70 02/20/20 16:47 108 H 99 02/20/20 16:42 113 H 99 02/20/20 16:37 113 H 99 02/20/20 16:32 104 H 100 02/20/20 16:27 112 H 99 02/20/20 16:22 118 H 98 02/20/20 16:21 100 H 140/68 02/20/20 16:17 114 H 97 02/20/20 16:12 110 H 100 02/20/20 16:07 106 H 98 02/20/20 16:04 45 L 0 L 02/20/20 16:02 107 H 100 02/20/20 15:57 103 H 98 02/20/20 15:52 101 H 84 02/20/20 15:51 100 H 141/64 02/20/20 15:47 110 H 99 02/20/20 15:42 104 H 98 02/20/20 15:37 107 H 99 02/20/20 15:32 109 H 99 02/20/20 15:27 106 H 99 02/20/20 15:22 102 H 99 02/20/20 15:21 101 H 134/63 02/20/20 15:17 98 H 127/63 99 02/20/20 15:03 107 H 97 02/20/20 15:00 15 98 02/20/20 14:58 103 H 100 02/20/20 14:53 96 H 100 02/20/20 14:48 103 H 99 02/20/20 14:43 101 H 99 02/20/20 14:38 104 H 100 02/20/20 14:33 98 H 99 02/20/20 14:28 98 H 99 02/20/20 14:23 99 H 99 02/20/20 14:18 99 H 98 02/20/20 14:13 103 H 97 02/20/20 14:08 95 H 98 02/20/20 14:03 102 H 98 02/20/20 13:58 99 H 99 02/20/20 13:53 99 H 98 02/20/20 13:48 107 H 99 02/20/20 13:43 102 H 99 02/20/20 13:38 89 97 02/20/20 13:33 91 H 97 02/20/20 13:28 92 H 96 02/20/20 13:23 90 96 02/20/20 13:21 107 H 111/54 02/20/20 13:18 92 H 97 02/20/20 13:13 91 H 98 02/20/20 13:08 108 H 97 02/20/20 13:03 95 H 95 02/20/20 13:00 98.9 F 13 99 02/20/20 12:58 100 H 96 02/20/20 12:53 89 96 02/20/20 12:51 92 H 132/60 02/20/20 12:48 120 H 98 02/20/20 12:43 98 H 97 02/20/20 12:38 95 H 99 02/20/20 12:33 98 H 98 02/20/20 12:28 101 H 98 02/20/20 12:23 100 H 97 02/20/20 12:21 95 H 143/73 02/20/20 12:18 102 H 99 02/20/20 12:13 112 H 98 02/20/20 12:08 109 H 98 02/20/20 12:03 117 H 99 02/20/20 11:58 99 H 99 02/20/20 11:53 111 H 98 02/20/20 11:51 101 H 129/62 02/20/20 11:48 104 H 99 02/20/20 11:43 100 H 99 02/20/20 11:38 98 H 99 02/20/20 11:33 106 H 99 02/20/20 11:28 108 H 98 02/20/20 11:23 107 H 97 02/20/20 11:21 109 H 123/59 02/20/20 11:18 96 H 97 04/24/20 11:13 101 H 98 02/20/20 11:08 115 H 98 02/20/20 11:03 104 H 96 02/20/20 11:00 18 99 02/20/20 10:58 92 H 95 02/20/20 10:53 94 H 96 02/20/20 10:51 96 H 120/56 02/20/20 10:48 96 H 97 02/20/20 10:43 89 98 02/20/20 10:38 100 H 98 Intake and Output 02/20/20 02/21/20 02/21/20 23:59 07:59 15:59 Intake Total 320 Output Total 900 700 Balance -900 -700 320 Intake: Oral 320 Output: Urine 900 700 Indwelling Catheter 600 Void 300 700 Other: Total, Intake Amount 320 Total, Output Amount 300 400 # Voids Void 1 1 - Exam Lungs: Present: Normal air movement Abdomen: Present: soft. Absent: distention Uterus: Present: firm, fundal height below umbilicus. Absent: bogginess Extremities: Present: normal Incision: Present: normal, dry, intact - Labs Labs: Abnormal lab results 02/20/20 02/20/20 02/21/20 Range/Units 12:00 Unknown 08:36 Hgb 8.8 L (10.1-14.3) gm/dl Hct 27.0 L (30.3-42.9) % Magnesium 4.30 H 4.40 H (1.7-2.3) mg/dL
[2020-02-21] MEDS: oxyCODONE /ACETAMINOPHEN 5-325MG TAB PO PRN (16:28)
[2020-02-21] MEDS: FERROUS SULFATE 325 MG TAB PO SCH (16:28)
--- NOTE | 2020-02-22 10:28 | Progress Note ---
Assessment and Plan A: POD3 s/p repeat LTCS/lysis of adhesions/hemorrhage Preeclampsia with severe features s/p mag sulfate x24 hr Acute anemia due to hemorrhage Vital signs stable P: Routine pp care Ferrous sulfate supplementation D/c to home today Subjective - Subjective Date of service: 02/22/20 Principal diagnosis: s/p repeat section, severe preeclampsia, morbid obesity Interval history: POD3 s/p repeat LTCS with lysis of adhesions, hemorrhage s/p Cytotec, preeclampsia with severe features s/p mag sulfate x24 hr. Patient reports: appetite normal, voiding normally, pain well controlled, flatus, ambulating normally [place]: doing well, nursing well Objective - Vital Signs Latest vital signs: Vital Signs Temp Pulse Resp BP BP Pulse Ox 02/22/20 08:00 98.6 F 77 14 133/71 97 02/22/20 05:48 98.2 F 76 18 119/79 96 02/22/20 00:37 97.9 F 80 18 128/66 94 02/21/20 19:51 98.1 F 85 20 140/74 96 02/21/20 16:40 98 F 96 H 18 122/64 Intake and Output 02/21/20 02/22/20 02/22/20 23:59 07:59 15:59 Intake Total 360 360 Output Total 600 Balance -240 360 Intake: Oral 360 Intake, Free Water 360 Output: Urine 600 Void 600 Other: Total, Intake Amount 360 Total, Output Amount 600 # Voids Void 2 - Exam Breasts: Present: normal Lungs: Present: Normal air movement Abdomen: Present: soft. Absent: distention Uterus: Present: firm, fundal height below umbilicus. Absent: bogginess Extremities: Present: normal Incision: Present: normal, dry, intact
--- NOTE | 2020-02-22 10:29 | Discharge Summary ---
Providers - Providers Date of Admission: 02/19/20 10:33 Date of discharge: 02/22/20 Attending physician: CASSIUS HERNANDEZ Primary care physician: CASSIUS HERNANDEZ Hospitalization Reason for admission: section, IUP at term, other (Preeclampsia with severe features) Delivery: Procedure: section, repeat low transverse Episiotomy: none Incision: normal, dry, intact Other procedures: none complications: none Discharge diagnosis: IUP at term delivered Hospital course: Pt arrived for repeat LTCS secondary to preeclampsia with severe features. She underwent rLTCS with lysis of adhesions. She received mag sulfate x24 hours, and was found to have acute anemia due to blood loss. She received PO ferrous sulfate supplementation. Blood pressure trend decreased and she met discharge criteria on POD3. Condition at discharge: Good Disposition: DC-01 TO HOME OR SELFCARE Plan - Discharge Medications Prescriptions: Ferrous Sulfate [Feosol 325 MG tab] 325 mg PO BID #60 tablet Ibuprofen [Motrin] 600 mg PO Q6H PRN #60 tablet PRN Reason: Pain - Provider Discharge Summary Activity: routine, no sex for 6 weeks, no heavy lifting 4 weeks, no strenuous exercise Diet: routine Instructions: routine Additional instructions: [] Smoking cessation referral if applicable(refer to patient education folder for contact #) [] Refer to [facility]'s [facility] Booklet Call your doctor immediately for: * Fever > 100.5 * Heavy vaginal bleeding ( >1 pad per hour) * Severe persistent headache * Shortness of breath * Reddened, hot, painful area to leg or breast * Drainage or odor from incision. * Keep incision clean and dry at all times and follow doctor's instructions regarding bathing/showering - Follow up plan Follow up: CASSIUS HERNANDEZ MD [Primary Care Provider] - 7 Days
[2020-02-22] MEDS: IBUPROFEN 800 MG TAB PO PRN (13:10)
[2020-02-22 13:37] VITALS: BP 147/84
== END 2020-02-22 15:00 | disposition home or self-care (01) | DRG 787 ==
LOC: TRG 10:32 → OBSVTOIN 10:33 → APU 10:33 → LD 21:20 → OB 02-20 21:34
PROVIDERS: ADMIT Obstetrics & Gynecology; ATTEND Obstetrics & Gynecology
PROC: 10D00Z1 Extraction of Products of Conception, Low, Open Approach (ICD-10-PCS; principal; 2020-02-19)
PROC: 3E0234Z Introduction of Serum, Toxoid and Vaccine into Muscle, Percutaneous Approach (ICD-10-PCS; 2020-02-20)
DX: O14.14 Severe pre-eclampsia complicating childbirth (principal); D62 Acute posthemorrhagic anemia; Z3A.38 38 weeks gestation of pregnancy; Z37.0 Single live birth; Z23 Encounter for immunization; O99.214 Obesity complicating childbirth; E66.01 Morbid (severe) obesity due to excess calories; O90.81 Anemia of the puerperium; O34.211 Maternal care for low transverse scar from previous cesarean delivery; O99.89 Other specified diseases and conditions complicating pregnancy, childbirth and the puerperium; N73.6 Female pelvic peritoneal adhesions (postinfective)
CPT/HCPCS: 36415; 81001; 82565; 83615; 83735; 84450; 84460; 84550; 85014; 85018; 85027; 86850; 86900; 86901; 87086; 88307; 90707; G0378; A6250; C1765; J0690; J1170; J1885; J2270; J2370; J2405; J2590; J2765; J3475; J3490; J7120; J7121